=== PATIENT | female | born 1960 | race Caucasian/White ===

== ENCOUNTER → 2018-05-24 08:18 | Outpatient (CLI) | payer OTHER, SELFPAY ==
--- NOTE | 2018-05-24 08:23 | BI_ITS ---
MAMMOGRAPHY - BILATERAL SCREENING REASON FOR EXAM: Female, 57 years old. Routine annual screening examination. PERTINENT HISTORY: Aunt with breast cancer. TECHNIQUE: Digital bilateral breast eddie (3D mammographic acquisition) in the CC and MLO projections. 2-D mediolateral oblique (MLO) and craniocaudad (CC) views of both breasts were obtained. CAD: Full Field Digital Mammography with Computer Added Detection was performed. COMPARISON: Comparison is made with prior study dated April 07, 2017 and March 04, 2016. FINDINGS: Breast Composition: There are scattered areas of fibroglandular density. There are no dominant masses or suspicious calcifications. No other significant abnormalities are identified. There has been no significant change since the prior study. BI/SCREENING MAMM (CAD), BILAT IMPRESSION: Stable bilateral screening mammogram. Yearly follow-up mammogram recommended. (A) ASSESSMENT CATEGORY: BIRADS Category 1: Negative. A letter regarding these results will be sent to the patient by the facility within 30 days. Approximately 10% of breast cancers are not detected by mammography. A normal mammogram should not delay biopsy of a clinically suspicious abnormality. [id number] Electronically Signed: Maxi Del Toro MD at 11:32 EST , Service support ,
== END ==
PROVIDERS: Family Provider Family Medicine; PCP Family Medicine; Visit Provider Family Medicine
DX: Z12.31 Encounter for screening mammogram for malignant neoplasm of breast (principal)
CPT/HCPCS: 77063; 77067

== ENCOUNTER → 2019-05-30 06:59 | Outpatient (CLI) | payer OTHER, SELFPAY ==
--- NOTE | 2019-05-30 07:02 | BI_ITS ---
MAMMOGRAPHY - BILATERAL SCREENING REASON FOR EXAM: Female, 58 years old. Routine annual screening examination. PERTINENT HISTORY: Aunt with breast cancer. TECHNIQUE: Digital bilateral breast nya (3D mammographic acquisition) in the CC and MLO projections. 2-D mediolateral oblique (MLO) and craniocaudad (CC) views of both breasts were obtained. CAD: Full Field Digital Mammography with Computer Added Detection was performed. COMPARISON: Comparison is made with prior examination dated May 24, 2018 and April 07, 2017. FINDINGS: Breast Composition: There are scattered areas of fibroglandular density. There are no dominant masses or suspicious calcifications. Stable small benign-appearing bilateral axillary lymph nodes. No other significant abnormalities are identified. There has been no significant change since the prior study. BI/SCREEN MAMM (CAD) W/NYA BILAT IMPRESSION: Stable bilateral screening mammogram. Yearly follow-up mammogram recommended. (A) ASSESSMENT CATEGORY: BIRADS Category 2: Benign. A letter regarding these results will be sent to the patient by the facility within 30 days. Approximately 10% of breast cancers are not detected by mammography. A normal mammogram should not delay biopsy of a clinically suspicious abnormality. [id number] Electronically Signed: Maxi Del Toro, at 8:50 EST , Service support ,
== END ==
PROVIDERS: Family Provider Family Medicine; PCP Family Medicine; Referring Provider Family Medicine; Visit Provider Family Medicine
DX: Z12.31 Encounter for screening mammogram for malignant neoplasm of breast (principal)
CPT/HCPCS: 77063; 77067

== ENCOUNTER → 2019-10-06 11:26 | Outpatient (CLI) | payer OTHER, SELFPAY ==
[2016-07-06 05:12] VITALS: BMI 44.7
[2019-10-06 15:46] LABS: Thyroid Stim Hormone (TSH) 2.12 uIU/mL (0.358-3.74); Uric Acid 9.2 mg/dL (2.6-6.0)
[2019-10-06 16:52] LABS: Hemoglobin A1c 5.2 % (3.8-5.6)
== END ==
PROVIDERS: PCP Family Medicine; Referring Provider Family Medicine; Visit Provider Family Medicine
DX: R73.02 Impaired glucose tolerance (oral) (principal); E03.9 Hypothyroidism, unspecified; M10.9 Gout, unspecified
CPT/HCPCS: 36415; 83036; 84443; 84550

== ENCOUNTER → 2020-05-01 16:52 | Outpatient (CLI) | payer OTHER, SELFPAY ==
[2016-07-06 05:12] VITALS: BMI 44.7
[2020-05-01 18:19] LABS: Uric Acid 10.2 mg/dL (2.6-6.0)
== END ==
PROVIDERS: PCP Family Medicine; Referring Provider Family Medicine; Visit Provider Family Medicine
DX: M10.9 Gout, unspecified (principal)
CPT/HCPCS: 36415; 84550

== ENCOUNTER → 2020-06-04 11:57 | Outpatient (CLI) | payer OTHER, SELFPAY ==
--- NOTE | 2020-06-04 11:59 | BI_ITS ---
MAMMOGRAPHY - BILATERAL SCREENING REASON FOR EXAM: Female, 59 years old. Routine annual screening examination. PERTINENT HISTORY: Aunt with breast cancer. TECHNIQUE: Digital bilateral breast nya (3D mammographic acquisition) in the CC and MLO projections. 2-D mediolateral oblique (MLO) and craniocaudad (CC) views of both breasts were obtained. CAD: Full Field Digital Mammography with Computer Added Detection was performed. COMPARISON: Comparison is made with prior study dated 05/30/2019 and 05/24/2018. FINDINGS: Breast Composition: There are scattered areas of fibroglandular density. There are no dominant masses or suspicious calcifications. Stable benign-appearing bilateral axillary lymph nodes. No other significant abnormalities are identified. There has been no significant change since the prior study. BI/SCRN MAMM (CAD)W/NYA BILAT IMPRESSION: Stable bilateral screening mammogram. Yearly follow-up mammogram recommended. (A) ASSESSMENT CATEGORY: BIRADS Category 2: Benign. A letter regarding these results will be sent to the patient by the facility within 30 days. Approximately 10% of breast cancers are not detected by mammography. A normal mammogram should not delay biopsy of a clinically suspicious abnormality. [id number] Electronically Signed: Maxi Del Toro MD at 12:46 EST , Service support ,
== END ==
PROVIDERS: PCP Family Medicine; Referring Provider Family Medicine; Visit Provider Family Medicine
DX: Z12.31 Encounter for screening mammogram for malignant neoplasm of breast (principal)
CPT/HCPCS: 77063; 77067

== ENCOUNTER → 2020-07-12 15:32 | Outpatient (CLI) | payer OTHER, SELFPAY ==
[2016-07-06 05:12] VITALS: BMI 44.7
[2020-07-12 20:29] LABS: Uric Acid 5.6 mg/dL (2.6-6.0)
== END ==
PROVIDERS: PCP Family Medicine; Referring Provider Family Medicine; Visit Provider Family Medicine
DX: M10.9 Gout, unspecified (principal)
CPT/HCPCS: 36415; 84550

== ENCOUNTER → 2020-09-24 10:50 | Outpatient (CLI) | payer OTHER, SELFPAY ==
[2016-07-06 05:12] VITALS: BMI 44.7
== END ==
PROVIDERS: PCP Family Medicine; Referring Provider Family Medicine; Visit Provider Family Medicine
DX: E03.9 Hypothyroidism, unspecified (principal)
CPT/HCPCS: 36415; 84443

== ENCOUNTER 2021-04-10 12:05 | Inpatient (IN) | payer OTHER, SELFPAY ==
[2021-04-10] VITALS (16 sets, daily range): BP systolic 95–109; BP diastolic 55–65; PULSE 82–101; RESP 18–27; TEMP 36.4–37.4; O2SAT 86–98; BMI 45.6; BMI 43.0
--- NOTE | 2021-04-10 12:18 | RAD_ITS ---
STUDY: X-RAY CHEST REASON FOR EXAM: Female, 60 years old. SOB and cough TECHNIQUE: AP COMPARISON: None. FINDINGS: Multifocal infiltrates with features commonly reported with COVID pneumonia. There is no demonstrated pleural abnormality. Normal size heart. Normal mediastinum and brenda. Normal visualized pulmonary arteries. Normal visualized aortic arch and descending thoracic aorta. Normal visualized thoracic spine. Normal visualized ribs, clavicles, and shoulders. There is no demonstrated abnormality of the visualized soft tissue structures of the upper abdomen. RAD/Chest 1 View (Portable) IMPRESSION: Multifocal infiltrates with features commonly reported with COVID pneumonia. Electronically Signed: Bay Parra MD (Brooks) at 12:46 EST , Service support ,
[2021-04-10 12:27] LABS: Absolute Lymphocyte Count 1.07 X10^3/uL (0.83-4.51); Absolute Neutrophil Count 6.6 X10^3/uL (2.0-7.7); Basophil# 0.01 X10^3/uL; Basophil% 0.1 % (0-1); Eosinophil# 0.01 X10^3/uL; Eosinophils% 0.1 % (0-5); Hematocrit 38.3 % (37-47); Lymphocyte # 1.07 X10^3/ul (0.83-4.51); Lymphocyte % 12.7 % (19-41); Mean Corp Hgb Conc 33.9 g/dL (32-36); Mean Corpuscular Hgb 31.9 pg (27.0-32.0); Mean Corpuscular Volume 93.9 fL (81-99); Mean Platelet Vol. 9.6 fl (6.2-12.0); Monocyte% 8.3 % (0-10); NRBC Flagged by Analyzer 0 % (0-5); Neutrophil # 6.58 X10^3/uL (2.7-7.7); Neutrophil % 78.2 % (47-70); Platelet Count 178 K/mm3 (150-450); RBC Distribution Width CV 13.4 % (11.6-14.6); RBC Distribution Width SD 46.1 fl (35.1-43.9); Red Blood Count 4.08 M/mm3 (4.2-5.4); White Blood Count 8.4 K/mm3 (4.4-11.0)
[2021-04-10 12:45] LABS: Anion Gap 9 (5-15); BUN 49 mg/dL (7-18); Calcium,Total 9.3 mg/dL (8.5-10.1); Chloride 100 mmol/L (98-107); Creatinine, Serum 3.77 mg/dL (0.55-1.02); EST Glomerular Filtration Rate 13 mL/min (>60); Est Glom Filt Rate - Afr Amer 16 mL/min (>60); Estimated Creatinine Clearance 16.21 ml/min; Glucose 130 mg/dL (74-106); Potassium 3.7 mmol/L (3.5-5.1); Sodium Level 135 mmol/L (136-145)
--- NOTE | 2021-04-10 12:58 | EKG12_ITS ---
Test Reason : SOB Blood Pressure : / mmHG Vent. Rate : 100 BPM Atrial Rate : 100 BPM P-R Int : 144 ms QRS Dur : 080 ms QT Int : 326 ms P-R-T Axes : 048 007 021 degrees QTc Int : 420 ms Normal sinus rhythm Normal ECG Confirmed by THERESA STONE, TANNA ([id number]), technical writer and editor JOHN SAENZ ([id number]) on 04/16/2021 10:17:42 AM Referred By: SHIRA Confirmed By:TANNA CARDENAS MD
[2021-04-10 13:19] LABS: Troponin-I HS 14 pg/mL (3.0-54.0)
--- NOTE | 2021-04-10 13:59 | ED.VIS.DYS ---
HPI History of Present Illness Chief Complaint: Shortness of Breath Narrative Narrative: 60-year-old female presenting with cough, fevers, shortness of breath, decreased p.o. intake and malaise. Patient states she started to become ill on 03 April. Patient states that since that time she has not been eating and drinking much but she is not vomiting. She does admit to drinking some water and some Mountain Dew. She states that on she tried to eat a hotdog but she has not eaten much. She denies abdominal pain. She states she has been making urine and stool. She denies dysuria or hematuria. Patient states that since she has been ill, she has been sleeping most of the night and then laying around on her recliner most of the day. She estimates this to be about 20 hours in total a day that she is lying down. [facility] Medical History Hypertension Hypothyroid Home Medications aliskiren-hydrochlorothiazide [Tekturna Hct 300-25 MG Tablet] 1 tab PO DAILY 07/06/16 [History Last Taken Unknown] levothyroxine 50 mcg PO DAILY 07/06/16 [History Last Taken Unknown] nebivolol [Bystolic] 5 mg PO DAILY 07/06/16 [History Last Taken Unknown] allopurinol 04/10/21 [History Last Taken Unknown] Allergy/AdvReac Type Severity Reaction Status Date / Time No Known Allergies Allergy Verified 07/06/16 05:14 Social History Smoking Status: Never smoker ROS [facility] ED Constitutional Constitutional ED: Reports chills and fever(s) Eyes Eyes: Denies blurry vision or change in vision ENT ENT ED: Denies rhinorrhea or sore throat Cardiovascular Cardiovascular: Denies chest pain or palpitations Respiratory/Chest Respiratory/Chest: Reports cough, dyspnea and dyspnea on exertion Gastrointestinal Gastrointestinal: Denies abdominal pain, nausea or vomiting Genitourinary Genitourinary ED: Denies dysuria or hematuria Musculoskeletal Musculoskeletal: Reports myalgias; Denies arthralgias or neck pain Integumentary Denies abscess or rash Neurologic Neurologic: Denies headache(s) or paresthesias Psychiatric Psychiatric: Denies anxiety or depression EXAM Physical Exam Const Vital Signs: 04/10/21 12:05 04/10/21 12:08 04/10/21 12:15 Temperature 97.5 F L Temperature Source Temporal Pulse Rate 101 H Respiratory Rate 22 H Respiratory Effort Respiratory Depth Respiratory Pattern Blood Pressure 97/55 L Blood Pressure Mean 69 Pulse Ox 86 90 Oxygen Delivery Method Room Air Nasal Cannula Nasal Cannula Oxygen Flow Rate (L/min) 2 2 04/10/21 12:16 04/10/21 13:01 04/10/21 13:06 Temperature 99.3 F H Temperature Source Oral Pulse Rate 97 Respiratory Rate 26 H Respiratory Effort Normal Respiratory Depth Normal Respiratory Pattern Tachypnea Blood Pressure 95/58 L Blood Pressure Mean 70 Pulse Ox 93 96 Oxygen Delivery Method Nasal Cannula Nasal Cannula Nasal Cannula Oxygen Flow Rate (L/min) 2 3 3 04/10/21 14:11 04/10/21 14:13 Temperature 98.6 F 98.6 F Temperature Source Temporal Temporal Pulse Rate 95 94 Respiratory Rate 26 H 26 H Respiratory Effort Respiratory Depth Respiratory Pattern Blood Pressure 100/62 100/62 Blood Pressure Mean 74 74 Pulse Ox 98 98 Oxygen Delivery Method Nasal Cannula Nasal Cannula Oxygen Flow Rate (L/min) 3 3 Positive obese General Appearance ED: NAD; Negative for pallor Nutritional Appearance: obese HEENT Reports dry mucous membranes atraumatic Mouth ED: Yes dry mucous membranes Mouth: dry mucous membranes Eyes PERRL and EOMs intact bilaterally Resp normal respiratory effort Auscultation: rales bilateral base Cardio regular rate and regular rhythm Extremity normal to inspection Neuro oriented x3 and CN's II-XII intact bilaterally Sensorium / Orientation: alert Motor Exam: strength 5/5 throughout Psych mental status grossly normal Thought Process: normal thought process Skin General Skin Exam: Negative for jaundice or pallor Rashes: no rashes MDM MDM MDM Narrative Medical decision making narrative: Patient presenting with viral symptoms. She states he has not been eating and drinking well. She states for the most part her symptoms have started to improve although she is significantly short of breath with exertion. Patient found to be hypoxic on arrival and was 86% on room air. Patient placed on 3 L nasal cannula and is maintaining her sats at 96%. EKG performed on arrival shows a sinus rhythm with a ventricular rate of 100 bpm without sign of ischemic change on my interpretation. Chest x-ray on my interpretation shows multiple bilateral infiltrates and the radiologist does agree. Patient CBC shows she does not have leukocytosis. Hemoglobin and hematocrit are stable. Electrolytes are normal however the patient's creatinine is elevated at 3.77. The only creatinine that I have is from 2017 to compare this to and this was 0.8. Patient states she had outpatient blood work about 6 months ago and was not told of any abnormalities. Patient was given 500 cc of IV fluids. High-sensitivity troponin is negative at 14. Given the patient's decreased renal function and hypoxia I think she would benefit from inpatient treatment. Impression: 1. COVID-19 pneumonitis 2. Hypoxic respiratory failure 3. Acute renal failure Lab Data Labs: Laboratory Results - last 24 hr 04/10/21 04/10/21 04/10/21 12:15 12:15 12:15 WBC 8.4 RBC 4.08 L Hgb 13.0 Hct 38.3 MCV 93.9 MCH 31.9 MCHC 33.9 RDW Std Deviation 46.1 H RDW Coeff of Alverto 13.4 Plt Count 178 MPV 9.6 Immature Gran % (Auto) 0.600 Neut % (Auto) 78.2 H Lymph % (Auto) 12.7 L [place] % (Auto) 8.3 Eos % (Auto) 0.1 Baso % (Auto) 0.1 Absolute Neuts (auto) 6.6 Absolute Lymphs (auto) 1.07 Nucleated RBC % 0 Sodium 135 L Potassium 3.7 Chloride 100 Carbon Dioxide 26.0 Anion Gap 9 BUN 49 H Creatinine 3.77 H Estim Creat Clear Calc 16.21 Est GFR (MDRD) Af Amer 16 L Est GFR (MDRD) Non-Af 13 L BUN/Creatinine Ratio 13.0 Glucose 130 H Calcium 9.3 Troponin I High Sens 14 Radiography Diagnostic Testing: Clinical Impression(s) from Imaging Studies Chest X-Ray 04/10/21 12:18 IMPRESSION: Multifocal infiltrates with features commonly reported with COVID pneumonia. Electronically Signed: Bay Parra MD ([place]) at 12:46 EST , Service support , Discharge Plan Triage Chief Complaint: Shortness of Breath ED Provider: Sung Talbert Dx/Rx/DC Orders Prescriptions: No Action levothyroxine 50 MCG tablet 50 mcg PO DAILY RF: 0 nebivolol [Bystolic] 5 MG tablet 5 mg PO DAILY RF: 0 Tekturna HCT 1 TAB tablet 1 tab PO DAILY RF: 0 allopurinol 100 mg tablet RF: 0 Primary Care Provider: Eliecer George
--- NOTE | 2021-04-10 14:12 | PCM.HP.STD ---
HPI - General General Date of Admission: 04/10/21 Date of Service: 04/10/21 Chief Complaint: COVID type symptoms, worsening. HPI Narrative The patient is a 60 y/o F w/ PMHx: HTN, Hypothyroidism, Morbid Obesity who presents to the [facility] ED on 04/10/21 with history of onset of Covid type symptoms on 04/03/2021 with unvaccinated COVID status with specifically chills, body aches, sore throat as well as dyspnea, cough and mild loose stools, not improving with worsening dyspnea prompting eventual ED evaluation. Her is also present and occasionally coughing and notes that he was ill prior to her but has been improving. Work-up in the ED included T 97.5, heart rate 101, BP 97/55, respiratory rate 22 up to 26, 86% on room air initially improved to 93% on 2 L nasal cannula, CBC with WC 8.4, hemoglobin 13, platelet 178 without marked shift, D-dimer 0.79, PTT 31.8, CMP with sodium 135, BUN/Cr 49/3.77, glucose 130, total bilirubin 1.0, direct bilirubin 0.42, AST/ALT 61/45, troponin , UA with possible evidence of urine tract infection however patient urinalysis is a poor sample with elevated squamous epithelial cells with repeat UA requested and pending, chest x-ray with bilateral Covid pneumonia, rapid Covid antigen positive. In the ED patient ministered Decadron therapy. [facility] Medical History (Updated 04/10/21 @ 19:[address] Destiny Benavidez MD) Hypertension Hypothyroid Morbid obesity Post-menopausal Home Medications aliskiren-hydrochlorothiazide [Tekturna Hct 300-25 MG Tablet] 1 tab PO DAILY 07/06/16 [History Last Taken 04/09/21] nebivolol [Bystolic] 5 mg PO DAILY 07/06/16 [History Last Taken 04/09/21] allopurinol 200 mg PO DAILY 04/10/21 [History Last Taken 04/09/21] levothyroxine [Synthroid] 75 mcg PO DAILY 04/10/21 [History Last Taken 04/09/21] Allergy/AdvReac Type Severity Reaction Status Date / Time No Known Allergies Allergy Verified 07/06/16 05:14 Family History (Updated 04/10/21 @ 19:[address] Destiny Benavidez MD) Mother Colon cancer Colon CA, diagnosed age 76. Father Heart disease Myocardial infarction age 54 secondary to MS. Surgical History (Updated 04/10/21 @ 19:[address] Destiny Benavidez MD) No history of previous surgery Social History (Updated 04/10/21 @ 19:[address] Destiny Benavidez MD) household members: spouse Smoking Status: Never smoker alcohol intake: never substance use type: does not use ROS ROS Narrative Admission Review of Systems: CONSTITUTIONAL: No weight loss, fever, + chills, weakness or fatigue. HEENT: + sore throat. Eyes: No visual loss, blurred vision, double vision or yellow sclerae. Ears, Nose, Throat: No hearing loss, sneezing. SKIN: No rash or itching, lesions, wounds. CARDIOVASCULAR: No chest pain, chest pressure or chest discomfort, palpitations, edema, orthopnea, syncopal events. RESPIRATORY: + shortness of breath, cough, No marked sputum, wheezing, hemoptysis. GASTROINTESTINAL: + diarrhea, anorexia, No nausea, vomiting, abdominal pain, melena, BRBPR. GENITOURINARY: No dysuria, frequency, urgency or retention. NEUROLOGICAL: No dizziness, headache, syncope, paralysis, ataxia, numbness or tingling in the extremities, focal weakness, change in bowel or bladder control, seizure. MUSCULOSKELETAL: + muscle, back pain, joint pain or stiffness. HEMATOLOGIC: No anemia, bleeding or bruising. LYMPHATICS: No enlarged nodes. No history of splenectomy. PSYCHIATRIC: No history of depression or anxiety. ENDOCRINOLOGIC: No reports of sweating, cold or heat intolerance. No polyuria or polydipsia. ALLERGIES: No history of asthma, hives, eczema or rhinitis. Vital Signs Vital Signs Vital Signs: 04/10/21 12:05 04/10/21 12:08 04/10/21 12:15 Temperature 97.5 F L Temperature Source Temporal Pulse Rate 101 H Respiratory Rate 22 H Respiratory Effort Respiratory Depth Respiratory Pattern Blood Pressure 97/55 L Blood Pressure Mean 69 Pulse Ox 86 90 Oxygen Delivery Method Room Air Nasal Cannula Nasal Cannula Oxygen Flow Rate (L/min) 2 2 04/10/21 12:16 04/10/21 13:01 04/10/21 13:06 Temperature 99.3 F H Temperature Source Oral Pulse Rate 97 Respiratory Rate 26 H Respiratory Effort Normal Respiratory Depth Normal Respiratory Pattern Tachypnea Blood Pressure 95/58 L Blood Pressure Mean 70 Pulse Ox 93 96 Oxygen Delivery Method Nasal Cannula Nasal Cannula Nasal Cannula Oxygen Flow Rate (L/min) 2 3 3 Weight Weight: 300 lb Body Mass Index (BMI) 45.6 Physical Exam Narrative Physical Examination: General: Awake, alert, oriented x 3 and cooperative, seated upright in the ED bed, fatigued and ill-appearing, mildly increased respiratory rate. Skin: Normal color, normal turgor, no icterus, no cyanosis. HEENT: AT/NC, EOMI, PERRLA, moderately dry MM, no carotid bruits or JVD noted. Lungs: Diffusely diminished, greater bases, increased respiratory rate, no rales, ronchi or wheezing. Heart: Mildly tachycardic with regular rhythm; no gallop, rub audible. Abdomen: Soft, morbidly obese, no obvious TTP, unable to discern distention given habitus, distant hyperactive bowel sounds, unable to discern HSM secondary to habitus. Extremities: No cyanosis, clubbing, or edema. Neurological: Patient awake, alert, oriented as noted, cognitive function intact; pupils equally reactive to light and accommodation, cranial nerves II-XII grossly normal, moving all 4 extremities, no focal deficits, strength moderately to severely globally decreased secondary to acute presentation. Psychiatric: Affect appears fatigued, ill-appearing, no acute evidence of depressive or anxiety feelings. Results Lab / Micro Data Result Diagrams: 04/10/21 12:15 04/10/21 12:15 Labs: Laboratory Results - last 24 hr 04/10/21 12:15: WBC 8.4, RBC 4.08 L, Hgb 13.0, Hct 38.3, MCV 93.9, MCH 31.9, MCHC 33.9, RDW Std Deviation 46.1 H, RDW Coeff of Alverto 13.4, Plt Count 178, MPV 9.6, Immature Gran % (Auto) 0.600, Neut % (Auto) 78.2 H, Lymph % (Auto) 12.7 L, [place] % (Auto) 8.3, Eos % (Auto) 0.1, Baso % (Auto) 0.1, Absolute Neuts (auto) 6.6, Absolute Lymphs (auto) 1.07, Nucleated RBC % 0 04/10/21 12:15: Sodium 135 L, Potassium 3.7, Chloride 100, Carbon Dioxide 26.0, Anion Gap 9, BUN 49 H, Creatinine 3.77 H, Estim Creat Clear Calc 16.21, Est GFR (MDRD) Af Amer 16 L, Est GFR (MDRD) Non-Af 13 L, BUN/Creatinine Ratio 13.0, Glucose 130 H, Calcium 9.3 04/10/21 12:15: Troponin I High Sens 14 Micro: Microbiology 04/10/21 12:15 Nasal Secretion SARS-CoV-2 Antigen (Rapid) - Final SARS-CoV-2 (COVID 19) Radiology Impression Chest X-Ray 04/10/21 12:18 IMPRESSION: Multifocal infiltrates with features commonly reported with COVID pneumonia. Electronically Signed: Bay Parra MD (Brooks) at 12:46 EST , Service support , Assessment & Plan Assessment/Plan (1) Pneumonia due to COVID-19 virus: (2) Hypoxia: PLAN: The patient is a 60 y/o F w/ PMHx: HTN, Hypothyroidism, Morbid Obesity who presents to the [facility] ED on 04/10/21 with history of onset of Covid type symptoms on 04/03/2021 with unvaccinated COVID status with specifically chills, body aches, sore throat as well as dyspnea, cough and mild loose stools, not improving with worsening dyspnea prompting eventual ED evaluation. #1. Acute Hypoxia secondary to Acute Bilateral Pneumonia secondary to Acute Viral Syndrome, COVID-19: Will admit to the ME telemetry, maintain on COVID precautions, will maintain on oxygen with wean as tolerated to room air, PRN albuterol, HOB, IS parameters w/ pending sputum cultures, respiratory viral panel and urine antigens, given D-dimer elevation will continue patient on heparin drip pending bilateral lower extremity ultrasounds given unable to obtain CTPA given renal function, will additionally obtain procalcitonin, CRP, CPK, Ferritin, LDH and BNP, continue supportive care including q 2 hour turning including prone given no prone bed availability and judicious hydration, closely monitor for worsening status for ARDS and multiorgan failure, will initiate and continue IV decadron x 10 doses, given presentation with significant acute kidney injury patient is not a candidate for remdesivir. #2. Acute kidney injury: Secondary to poor intake, possibly GI losses with acute presentation #1. Admission BUN/Cr 49/3.77, prior baseline creatinine noted to be 0.9. Will hydrate, hold nephrotoxic medications and repeat chemistry in AM. If no improvement would plan FeNa and renal ultrasound assessment. Initial UA requested poor sample however significant findings, requested repeat UA and urine culture from this however in the interim we will place on IV Rocephin in case patient does not fact have urinary tract infection in the setting of V[facility]. #3. Questionable Acute urinary tract infection: As noted urinalysis poor sample with elevated squamous epithelial cells, will request repeat urinalysis via catheterization and send urine culture from the sample, in the interim we will place to be cautious on IV Rocephin therapy, de-escalate off if repeat urinalysis is unremarkable. #4. Hypertension: Given acute kidney injury will hold patient Tekturna, continue patient Bystolic, hold as needed given low blood pressure in the ED. #5. Hypothyroidism: Continue home synthroid regimen. #6. Morbid Obesity: Weight loss and lifestyle changes encouraged, nutrition consulted. #7. DVT prophylaxis: SCDs, heparin drip pending duplex ultrasound lower extremities. #8. CODE status: Patient HCPOA and LW not in place. Given COVID PNA with hypoxia in unvaccinated status, discussed CODE status at length including difference between FULL code, DNR-CCA and DNR-CC status. Following discussions about the differences in these status, requested Full Code status, amenable to airvo, BIPAP, remdesivir and barcitinib if necessary (if renal function improves). Advanced Care Planning Face to Face Time: 16 minutes. Charges/Coding Visit Charges Inpatient E&M: 46768 Init Hosp L3 Procedures Hospitalists Procedures: 65002 Advncd Care Plan 30 Min
--- NOTE | 2021-04-10 14:28 | NURSING ---
MED SURG DANII COVID 19, ACUTE RENAL FAILURE, HYPOXIC RESP FAILURE
[2021-04-10 14:40] LABS: CPK Total, Creatine Kinase 243 U/L (26-192)
[2021-04-10] MEDS: dexAMETHasone 10 MG/ML Vial 6 MG IV (15:25)
[2021-04-10 15:32] LABS: D-Dimer Quantitative (DVT/PE) 0.79 FEU/ug/m (0.27-0.49)
[2021-04-10 15:35] LABS: BNP,B-Type NATRIURETIC PEPTIDE 9.1 pg/mL (0-100)
[2021-04-10 15:42] LABS: Procalcitonin 0.29 ng/mL (0.00-0.09)
[2021-04-10 15:44] LABS: Mucous, Urine 0 SEEN /hpf (<or=2+)
[2021-04-10 15:53] LABS: Color, Urine Yellow (Yellow); Glucose, Dipstick Normal (Normal); Ketone-Dipstick 5 mg/dl (Negative); Leukocyte Esterase-Dipstick 500 /ul (Negative); Nitrite-Dipstick Positive (Negative); Occult Blood-Urine 150 /ul (Negative); Protein-Dipstick 100 mg/dl (Negative); Specific Gravity, Urine 1.025 (1.002-1.030); Urine Clarity Cloudy (Clear); Urine Urobilinogen 1 mg/dl (Normal)
[2021-04-10 15:56] LABS: Bacteria 4+ /hpf (None Seen); Red Blood Cells-Urine 25-50 SEEN /hpf (0-5); Squamous Epithelial Cells - UA 10-25 SEEN /hpf (5-10); Urine Bilirubin Dipstick 1 mg/dL (Negative); White Blood Cells >100 SEEN /hpf (0-5)
[2021-04-10] MEDS: 0.9% Normal Saline 1,000 ML 125 ML IV (16:00)
[2021-04-10 16:04] LABS: AST(SGOT) 61 U/L (15-37); Alanine Aminotransfer ALT/SGPT 45 U/L (13-56); Albumin, Serum 3.4 g/dL (3.2-5.0); Alkaline Phosphatase 102 U/L (45-117); Bilirubin, Direct 0.42 mg/dL (0.00-0.30); Ferritin 727 ng/mL (8-252); Globulin 4.7 g/dL (2.2-4.2); LDH 273 U/L (84-246); Protein, Total 8.1 g/dL (6.4-8.2)
--- NOTE | 2021-04-10 16:41 | VDLE_ITS ---
Reason For Study: Elevated D-dimer RIGHT LEFT GSV is normal. GSV is normal. CFV, FV and PopV are compressible. CFV, FV and PopV are compressible. T/P Trunk is compressible. T/P Trunk is compressible. PTV is compressible. PTV is compressible. RT PerV is compressible. LT PerV is compressible. Procedure This is a venous duplex using B-mode, color flow and spectral Doppler. Exam performed portable in patient room. A preliminary report was called and/or faxed to [facility]. VL/Venous Duplex US - Yousif Extrem Interpretation Summary No evidence for acute deep venous thrombosis bilateral lower extremities with p atent and compressible bilateral great saphenous veins. Abbreviated COVID-19 protocol uti lized Ordering Physician: Destiny Benavidez Referring Physician: Eliecer George Performed By: Mary Burr RVT
[2021-04-10 18:21] LABS: Partial Thromboplast Time 31.8 Seconds (24.1-36.2)
[2021-04-10] MEDS: Heparin Injection (Vial) 5,000 UNIT/ML VIAL 9500 UNIT IV (18:54)
[2021-04-10] MEDS: Ceftriaxone 1 GM/50 ML BAG IV (21:02)
[2021-04-10] MEDS: 0.9% Saline Lock 10 ML Syringe IV (21:02)
[2021-04-11] MEDS: 0.9% Normal Saline 1,000 ML 125 ML IV (00:31)
[2021-04-11 01:08] LABS: Partial Thromboplast Time 151.5 Seconds (24.1-36.2)
--- NOTE | 2021-04-11 01:59 | NURSING ---
Pt's APTT was 151.5 @ 0100. Per Heparin Nonogram protocol I paused the IV heparin drip @ 0130 and will resume administration again @ 0330 at 13ML/HR or 1300 units per Hour.
[2021-04-11 03:00] VITALS: PULSE 72
[2021-04-11 03:45] VITALS: BP 124/71; PULSE 75; RESP 18; TEMP 36.6; O2SAT 92
--- NOTE | 2021-04-11 04:57 | NURSING ---
Resumed Pt's Iv heparin drip at 1300 units/Hr @ 0330 and ordered APTT lab draw for 929.
[2021-04-11 07:00] VITALS: PULSE 61
[2021-04-11 07:04] LABS: Absolute Lymphocyte Count 0.64 X10^3/uL (0.83-4.51); Hematocrit 33.9 % (37-47); Hemoglobin 11.2 g/dL (12.0-15.0); Lymphocyte # 0.64 X10^3/ul (0.83-4.51); Lymphocyte % 16.5 % (19-41); Mean Corpuscular Hgb 31.2 pg (27.0-32.0); Mean Corpuscular Volume 94.4 fL (81-99); Mean Platelet Vol. 9.8 fl (6.2-12.0); Monocyte# 0.19 X10^3/uL; Monocyte% 4.9 % (0-10); NRBC Flagged by Analyzer 0 % (0-5); Neutrophil # 3.03 X10^3/uL (2.7-7.7); Neutrophil % 78.1 % (47-70); Platelet Count 160 K/mm3 (150-450); RBC Distribution Width CV 13.1 % (11.6-14.6); RBC Distribution Width SD 45.1 fl (35.1-43.9); Red Blood Count 3.59 M/mm3 (4.2-5.4); White Blood Count 3.9 K/mm3 (4.4-11.0)
[2021-04-11 07:57] LABS: ALB/GLOB Ratio 0.6 RATIO (0.9-2.4); AST(SGOT) 42 U/L (15-37); Alanine Aminotransfer ALT/SGPT 38 U/L (13-56); Albumin, Serum 2.6 g/dL (3.2-5.0); Alkaline Phosphatase 81 U/L (45-117); Anion Gap 10 (5-15); BUN 45 mg/dL (7-18); BUN/Creat Ratio 20.6 RATIO (10-20); Calcium,Total 8.3 mg/dL (8.5-10.1); Chloride 105 mmol/L (98-107); Creatinine, Serum 2.18 mg/dL (0.55-1.02); EST Glomerular Filtration Rate 25 mL/min (>60); Est Glom Filt Rate - Afr Amer 30 mL/min (>60); Estimated Creatinine Clearance 28.03 ml/min; Globulin 4.2 g/dL (2.2-4.2); Glucose 143 mg/dL (74-106); Potassium 3.9 mmol/L (3.5-5.1); Protein, Total 6.8 g/dL (6.4-8.2); Sodium Level 136 mmol/L (136-145)
[2021-04-11 08:00] VITALS: BP 108/66; PULSE 80; RESP 18; TEMP 36.9; O2SAT 88; O2SAT 90
--- NOTE | 2021-04-11 09:47 | PCM.PN.HOSP ---
Subjective Subjective Seen and examined. Patient admitted with Covid symptoms since 04/03. Patient also complained of chest pain midsternal. Twelve-lead EKG and troponin was done and negative. Objective Data Objective Data Vital Signs: Vital Signs Temp Pulse Resp BP Pulse Ox 98.5 F 80 18 108/66 90 04/11/21 08:00 04/11/21 08:00 04/11/21 08:00 04/11/21 08:00 04/11/21 08:00 Oxygen Flow Rate (L/min) 4 Oxygen Delivery Method Nasal Cannula Weight: 283 lb 1.176 oz Body Mass Index (BMI) 43.0 Intake & Output: Intake and Output for Last 24 Hours 04/09/21 04/10/21 04/11/21 23:59 23:59 23:59 Intake Total 550 / 1550 1805.07 / 1805.07 Output Total 100 / 100 Balance 450 / 1450 1805.07 / 1805.07 Lab / Micro Data Result Diagrams: 04/11/21 06:10 04/11/21 06:10 Labs: Laboratory Results - last 24 hr 04/10/21 12:15: WBC 8.4, RBC 4.08 L, Hgb 13.0, Hct 38.3, MCV 93.9, MCH 31.9, MCHC 33.9, RDW Std Deviation 46.1 H, RDW Coeff of Alverto 13.4, Plt Count 178, MPV 9.6, Immature Gran % (Auto) 0.600, Neut % (Auto) 78.2 H, Lymph % (Auto) 12.7 L, [place] % (Auto) 8.3, Eos % (Auto) 0.1, Baso % (Auto) 0.1, Absolute Neuts (auto) 6.6, Absolute Lymphs (auto) 1.07, Nucleated RBC % 0 04/10/21 12:15: Sodium 135 L, Potassium 3.7, Chloride 100, Carbon Dioxide 26.0, Anion Gap 9, BUN 49 H, Creatinine 3.77 H, Estim Creat Clear Calc 16.21, Est GFR (MDRD) Af Amer 16 L, Est GFR (MDRD) Non-Af 13 L, BUN/Creatinine Ratio 13.0, Glucose 130 H, Calcium 9.3 04/10/21 12:15: Troponin I High Sens 14 04/10/21 12:15: Total Creatine Kinase 243 H 04/10/21 12:15: D-Dimer Quant (PE/DVT) 0.79 H* 04/10/21 12:15: Ferritin 727 H, Total Bilirubin 1.00, Direct Bilirubin 0.42 H, AST 61 H, ALT 45, Alkaline Phosphatase 102, Lactate Dehydrogenase 273 H, C-React Prot Ext Range 129.00 H, Total Protein 8.1, Albumin 3.4, Globulin 4.7 H 04/10/21 12:15: B-Natriuretic Peptide 9.1 04/10/21 12:15: Procalcitonin 0.29 H 04/10/21 15:38: Urine Color Yellow, Urine Clarity Cloudy, Urine pH 5.0, Ur Specific Carmen 1.025, Urine Protein 100 H, Urine Glucose (UA) Normal, Urine Ketones 5 H, Urine Occult Blood 150 H, Urine Nitrite Positive H, Urine Bilirubin 1 H, Urine Urobilinogen 1 H, Ur Leukocyte Esterase 500 H, Urine RBC 25-50 SEEN, Urine WBC >100 SEEN, Ur Squamous Epith Cells 10-25 SEEN, Urine Bacteria 4+, Urine Mucus 0 SEEN 04/10/21 18:02: APTT 31.8 04/11/21 00:38: APTT 151.5 H* 04/11/21 06:10: WBC 3.9 L, RBC 3.59 L, Hgb 11.2 L, Hct 33.9 L, MCV 94.4, MCH 31.2, MCHC 33.0, RDW Std Deviation 45.1 H, RDW Coeff of Alverto 13.1, Plt Count 160, MPV 9.8, Immature Gran % (Auto) 0.500, Neut % (Auto) 78.1 H, Lymph % (Auto) 16.5 L, [place] % (Auto) 4.9, Eos % (Auto) 0.0, Baso % (Auto) 0.0, Absolute Neuts (auto) 3.0, Absolute Lymphs (auto) 0.64 L, Nucleated RBC % 0 04/11/21 06:10: Sodium 136, Potassium 3.9, Chloride 105, Carbon Dioxide 21.0, Anion Gap 10, BUN 45 H, Creatinine 2.18 H, Estim Creat Clear Calc 28.03, Est GFR (MDRD) Af Amer 30 L, Est GFR (MDRD) Non-Af 25 L, BUN/Creatinine Ratio 20.6 H, Glucose 143 H, Calcium 8.3 L, Total Bilirubin 0.50, AST 42 H, ALT 38, Alkaline Phosphatase 81, Total Protein 6.8, Albumin 2.6 L, Globulin 4.2, Albumin/Globulin Ratio 0.6 L Micro: Microbiology 04/10/21 20:00 Urine, Clean Catch Streptococcus pneumoniae Antigen (M - Final 04/10/21 20:00 Urine, Clean Catch Legionella Antigen - Final 04/10/21 12:15 Nasal Secretion SARS-CoV-2 Antigen (Rapid) - Final SARS-CoV-2 (COVID 19) Radiography Diagnostic Testing: Radiology Impression Chest X-Ray 04/10/21 12:18 IMPRESSION: Multifocal infiltrates with features commonly reported with COVID pneumonia. Electronically Signed: Bay Parra MD (Brooks) at 12:46 EST , Service support , Physical Exam Narrative General: Alert, Oriented x3, Cooperative HEENT: Hard of hearing. Atraumatic, PERRLA, EOMI, Normocephalic Oral: No Gingival or Mucosal Lesions/ Ulcerations Neck: Supple, No JVD, Negative Carotid Bruits Lungs: Air entry diminished in bilateral lung bases. Mild fine bilateral expiratory rhonchi. Cardiovascular: Regular rate, Regular Rhythm, Normal S1, Normal S2, No murmurs Abdomen: Bowel Sounds Present, Soft, Non Tender, Non-Distended : No renal angle tenderness. No suprapubic tenderness. Extremities: No edema, Capillary Refill Less than 3 Seconds Skin: No rashes, No breakdown Musculoskeletal: No Tenderness to Palpation of Joints or Extremities Neurological: Cranial nerves II-XII grossly intact, DTR 2+/4 and Symmetrical, Neuro grossly intact Psych/Mental Status: Normal Affect, Appropriate. Assessment & Plan Assessment/Plan (1) Pneumonia due to COVID-19 virus: (2) Hypoxia: PLAN: The patient is a 60 y/o F was admitted with fever, body chills, dyspnea cough and symptomatology of COVID-19 since 04/03. #1. Acute bilateral COVID-19 pneumonia with hypoxia: Patient on heparin drip for high D-dimer. Could not do CTPA but venous duplex negative for acute DVT bilateral lower extremities. Inflammatory markers are elevated. On dexamethasone. Not cleared for remdesivir because of acute kidney injury. #2. Acute kidney injury, probably prerenal from GI loss: Improvement in BUN/creatinine with IV fluid rehydration. #3. Questionable Acute urinary tract infection: UA positive of nitrite and LE. Pyuria present. On IV Rocephin. Follow urine culture #4. Hypertension: Given acute kidney injury will hold patient Tekturna, continue patient Bystolic, hold as needed given low blood pressure in the ED. #5. Hypothyroidism: Continue home synthroid regimen. #6. Morbid Obesity: Weight loss and lifestyle changes encouraged, nutrition consulted. #7. DVT prophylaxis: SCDs, heparin drip pending duplex ultrasound lower extremities. #8. CODE status: Full code. Charges/Coding Visit Charges Inpatient E&M: 02054 Subs Hosp L2
[2021-04-11 09:54] LABS: Partial Thromboplast Time 70.8 Seconds (24.1-36.2)
--- NOTE | 2021-04-11 10:28 | NURSING ---
PTT 70.8, NO CHANGE TO HEPARIN GTT, REDRAW PTT AT 1530 ORDERED
--- NOTE | 2021-04-11 10:30 | NURSING ---
VSA OVERRIDE OBTAINED. SPO2 HAS BEEN 91-95% ALL AM, OCCASIONALLY DROPPED BELOW 90% WITH ACTIVITY. PT ON 4L. TELE DC'D WELL, NSR, PT UNABLE TO LIE PRONE W/THE EXCESS EQUIPMENT
[2021-04-11] MEDS: Levothyroxine 75 MCG Tablet PO (11:16)
[2021-04-11] MEDS: Allopurinol 100 MG Tablet 200 MG PO (11:16)
[2021-04-11] MEDS: 0.9% Saline Lock 10 ML Syringe IV (11:16)
[2021-04-11] MEDS: dexAMETHasone 10 MG/ML Vial 6 MG IV (11:20)
[2021-04-11] MEDS: Ceftriaxone 1 GM/50 ML BAG IV (11:20)
--- NOTE | 2021-04-11 12:10 | CASEMGMT ---
LAUREL PICKENS Assessment: Face to Face with pt for initial transition planning/care coordination assessment. LAUREL PICKENS introduced self and role at [facility], pt voices understanding and consents to assessment. Pt is A/O x4 and answers all questions appropriately at this time. Pt sitting on edge of bed with O2 on in no distress. at bedside with mask and gown on. Care providers, pharmacy, and demographics verified/updated. Admitting Dx: COVID PNA, hypoxia, VIDHI PCP:Ariel Specialists:Pt denies. Preferred Pharmacy: [facility] Insurance: MMO Prescription Benefit: yes LW/HPOA: Pt denies having a LW/DPOA and denies need for info regarding AD. She states they are not sure what documents they have. LNOK: Sonu Lopezffman, Living Arrangements: Pt lives with in a single story house with 2 steps to enter. Pt reports she is I in ADL's and denies concerns at home. Transportation: Pt drives self and denies concerns with transportation. DME/HHC/SNF: Pt has a cane but does not use, denies hx of HHC or SNF stays. Pt states she was first tested for COVID at [facility]. Her has not been tested and does not have symptoms. Pt states she will not quarantine from him at home. Encouraged them to use separate bedrooms and bathrooms. Pt has family who can provide her with groceries and supplies. Provided pt with a list of local in network DME companies should she need home O2, pt denies preference. Pt states no concerns with going home at time of dc. Pt states no further concerns/needs. CM to follow. Advised pt to ask CM if any further question/concerns/needs arise, voices understanding. Pt Goal: Home Plan: Home
[2021-04-11 14:00] VITALS: BP 108/67; PULSE 78; RESP 16; TEMP 36.3; O2SAT 91; O2SAT 92
[2021-04-11] MEDS: Loperamide 2 MG Capsule PO ×2 (14:22→16:47)
[2021-04-11] MEDS: guaiFENesin 10 ML UDC (200MG/10ML) 20 ML PO (14:32)
--- NOTE | 2021-04-11 15:07 | EKG12_ITS ---
Test Reason : CP Blood Pressure : / mmHG Vent. Rate : 075 BPM Atrial Rate : 075 BPM P-R Int : 156 ms QRS Dur : 090 ms QT Int : 394 ms P-R-T Axes : 050 017 031 degrees QTc Int : 439 ms Somatic/Motion Artifact Normal sinus rhythm Nonspecific ST abnormality Abnormal ECG Confirmed by ROB STONE, ETHAN ([id number]), managing editor RUBIO ADAIR ([id number]) on 04/25/2021 8:38:51 AM Referred By: DANII Confirmed By:ETHAN RIVAS MD
[2021-04-11 15:52] LABS: Troponin-I HS 11 pg/mL (3.0-54.0)
[2021-04-11 15:56] LABS: Partial Thromboplast Time 66.1 Seconds (24.1-36.2)
--- NOTE | 2021-04-11 16:19 | NURSING ---
ptt 66.1, no change to heparin gtt. next ptt ordered for 2129
--- NOTE | 2021-04-11 16:48 | NURSING ---
ekg and troponin results sent to dr blair
[2021-04-11 20:48] VITALS: BP 105/64; PULSE 72; RESP 18; TEMP 36.7; O2SAT 93
[2021-04-11 22:11] LABS: Partial Thromboplast Time 50.8 Seconds (24.1-36.2)
[2021-04-12] VITALS (10 sets, daily range): BP systolic 89–125; BP diastolic 51–77; PULSE 70–89; RESP 18–20; TEMP 36.2–36.6; O2SAT 3–93
[2021-04-12] MEDS: Heparin Injection (Vial) 5,000 UNIT/ML VIAL IV (00:26)
[2021-04-12 06:33] LABS: Absolute Lymphocyte Count 0.85 X10^3/uL (0.83-4.51); Absolute Neutrophil Count 5.7 X10^3/uL (2.0-7.7); Basophil# 0.01 X10^3/uL; Basophil% 0.1 % (0-1); Hematocrit 34.2 % (37-47); Hemoglobin 11.4 g/dL (12.0-15.0); Lymphocyte # 0.85 X10^3/ul (0.83-4.51); Mean Corp Hgb Conc 33.3 g/dL (32-36); Mean Corpuscular Hgb 31.2 pg (27.0-32.0); Mean Corpuscular Volume 93.7 fL (81-99); Mean Platelet Vol. 9.5 fl (6.2-12.0); Monocyte# 0.49 X10^3/uL; Monocyte% 6.9 % (0-10); NRBC Flagged by Analyzer 0 % (0-5); Neutrophil # 5.66 X10^3/uL (2.7-7.7); Platelet Count 206 K/mm3 (150-450); RBC Distribution Width CV 12.9 % (11.6-14.6); RBC Distribution Width SD 44.4 fl (35.1-43.9); Red Blood Count 3.65 M/mm3 (4.2-5.4); White Blood Count 7.1 K/mm3 (4.4-11.0)
[2021-04-12 06:45] LABS: Partial Thromboplast Time 62.9 Seconds (24.1-36.2)
[2021-04-12 07:08] LABS: ALB/GLOB Ratio 0.7 RATIO (0.9-2.4); AST(SGOT) 44 U/L (15-37); Alanine Aminotransfer ALT/SGPT 41 U/L (13-56); Albumin, Serum 2.8 g/dL (3.2-5.0); Alkaline Phosphatase 78 U/L (45-117); Anion Gap 6 (5-15); BUN 36 mg/dL (7-18); BUN/Creat Ratio 27.3 RATIO (10-20); Calcium,Total 8.7 mg/dL (8.5-10.1); Chloride 107 mmol/L (98-107); Creatinine, Serum 1.32 mg/dL (0.55-1.02); EST Glomerular Filtration Rate 44 mL/min (>60); Est Glom Filt Rate - Afr Amer 53 mL/min (>60); Estimated Creatinine Clearance 46.29 ml/min; Globulin 4.1 g/dL (2.2-4.2); Glucose 142 mg/dL (74-106); Potassium 4.4 mmol/L (3.5-5.1); Protein, Total 6.9 g/dL (6.4-8.2); Sodium Level 139 mmol/L (136-145)
[2021-04-12] MEDS: Ceftriaxone 1 GM/50 ML BAG IV (09:42)
[2021-04-12] MEDS: 0.9% Saline Lock 10 ML Syringe IV (09:43)
[2021-04-12] MEDS: Levothyroxine 75 MCG Tablet PO (09:43)
[2021-04-12] MEDS: Allopurinol 100 MG Tablet 200 MG PO (09:43)
[2021-04-12] MEDS: dexAMETHasone 10 MG/ML Vial 6 MG IV (09:43)
--- NOTE | 2021-04-12 09:45 | PN.HOSP_ITS ---
Subjective Subjective Patient has mild cough, running low blood pressure. On 3 L of oxygen. In the morning she was on 7 L of oxygen. Objective Data Objective Data Vital Signs: Vital Signs Temp Pulse Resp BP Pulse Ox 97.9 F 76 20 H 113/61 93 04/12/21 09:39 04/12/21 09:39 04/12/21 09:39 04/12/21 09:39 04/12/21 09:39 Oxygen Flow Rate (L/min) 4 Oxygen Delivery Method Nasal Cannula Weight: 286 lb 9.615 oz Body Mass Index (BMI) 43.0 Intake & Output: Intake and Output for Last 24 Hours 04/10/21 04/11/21 04/12/21 23:59 23:59 23:59 Intake Total 550 / 1550 3000.00 / 3240.00 330.78 / 330.78 Output Total 100 / 100 300 / 300 Balance 450 / 1450 2700.00 / 2940.00 330.78 / 330.78 Lab / Micro Data Result Diagrams: 04/12/21 06:20 04/12/21 06:20 Labs: Laboratory Results - last 24 hr 04/11/21 09:35: APTT 70.8 H 04/11/21 15:25: APTT 66.1 H 04/11/21 15:25: Troponin I High Sens 11 04/11/21 21:52: APTT 50.8 H 04/12/21 06:20: WBC 7.1, RBC 3.65 L, Hgb 11.4 L, Hct 34.2 L, MCV 93.7, MCH 31.2, MCHC 33.3, RDW Std Deviation 44.4 H, RDW Coeff of Alverto 12.9, Plt Count 206, MPV 9.5, Immature Gran % (Auto) 1.000 H, Neut % (Auto) 80.0 H, Lymph % (Auto) 12.0 L , [place] % (Auto) 6.9, Eos % (Auto) 0.0, Baso % (Auto) 0.1, Absolute Neuts (auto) 5.7, Absolute Lymphs (auto) 0.85, Nucleated RBC % 0 04/12/21 06:20: Sodium 139, Potassium 4.4, Chloride 107, Carbon Dioxide 26.0, Anion Gap 6, BUN 36 H, Creatinine 1.32 H, Estim Creat Clear Calc 46.29, Est GFR (MDRD) Af Amer 53 L, Est GFR (MDRD) Non-Af 44 L, BUN/Creatinine Ratio 27.3 H, Glucose 142 H, Calcium 8.7, Total Bilirubin 0.50, AST 44 H, ALT 41, Alkaline Phosphatase 78, Total Protein 6.9, Albumin 2.8 L, Globulin 4.1, Albumin/Globulin Ratio 0.7 L 04/12/21 06:20: APTT 62.9 H Micro: Microbiology 04/11/21 11:30 Sputum, Expectorated/Coughed Gram Stain - Final 04/11/21 11:30 Sputum, Expectorated/Coughed Respiratory Culture - Final 04/10/21 20:00 Urine, Clean Catch Streptococcus pneumoniae Antigen (M - Final 04/10/21 20:00 Urine, Clean Catch Legionella Antigen - Final 04/10/21 12:15 Nasal Secretion SARS-CoV-2 Antigen (Rapid) - Final SARS-CoV-2 (COVID 19) Radiography Diagnostic Testing: Radiology Impression Venous Doppler Study 04/10/21 16:41 Interpretation Summary No evidence for acute deep venous thrombosis bilateral lower extremities with patent and compressible bilateral great saphenous veins. Abbreviated COVID-19 protocol utilized Ordering Physician: Destiny Benavidez Referring Physician: Eliecer George Performed By: Mary Burr RVT Physical Exam Narrative Seen and examined. No fever. Patient oxygen count was 6 L on exertion General: Alert, Oriented x3, Cooperative HEENT: Hard of hearing. Atraumatic, PERRLA, EOMI, Normocephalic Oral: No Gingival or Mucosal Lesions/ Ulcerations Neck: Supple, No JVD, Negative Carotid Bruits Lungs: Air entry diminished in bilateral lung bases. No tachypnea. Cardiovascular: Regular rate, Regular Rhythm, Normal S1, Normal S2, No murmurs Abdomen: Bowel Sounds Present, Soft, Non Tender, Non-Distended : No renal angle tenderness. No suprapubic tenderness. Extremities: No edema, Capillary Refill Less than 3 Seconds Skin: No rashes, No breakdown Musculoskeletal: No Tenderness to Palpation of Joints or Extremities Neurological: Cranial nerves II-XII grossly intact, DTR 2+/4 and Symmetrical, Neuro grossly intact Psych/Mental Status: Normal Affect, Appropriate. Assessment & Plan Assessment/Plan (1) Pneumonia due to COVID-19 virus: (2) Hypoxia: PLAN: The patient is a 60 y/o F was admitted with fever, body chills, dyspnea cough and symptomatology of COVID-19 since 04/03. #1. Acute bilateral COVID-19 pneumonia with hypoxia: Patient on heparin drip for high D-dimer. Could not do CTPA but venous duplex negative for acute DVT bilateral lower extremities. Inflammatory markers are elevated. On dexamethasone. Not cleared for remdesivir because of acute kidney injury. 04/12:-Heparin drip changed to Lovenox because of fluctuation of APTT and ease of administration. VQ scan could not be done because of Covid isolation. Creatinine improving but still 1.32, estimated creatinine clearance 46 her appointment. Patient running low blood pressure, H&H ordered. Today CBC shows hemoglobin 11.4 similar to yesterday #2. Acute kidney injury, probably prerenal from GI loss: Improvement in BUN/creatinine with IV fluid rehydration. 04/12 as mentioned above. Creatinine improving. IV fluid discontinued #3. Questionable Acute urinary tract infection: UA positive of nitrite and LE. Pyuria present. 04/12: Was empirically urine culture negative. Ceftriaxone discontinued #4. Hypertension: Given acute kidney injury will hold patient Teksrinivasanurna 04/12: Patient running low blood pressure but he still MAP more than 65. Bystolic discontinued. #5. Hypothyroidism: Continue home synthroid regimen. #6. Morbid Obesity: Weight loss and lifestyle changes encouraged, nutrition consulted. #7. DVT prophylaxis: SCDs, as mentioned above #8. CODE status: Full code. Charges/Coding Visit Charges Inpatient E&M: 79904 Subs Hosp L2
[2021-04-12 12:51] LABS: Partial Thromboplast Time 48.9 Seconds (24.1-36.2)
[2021-04-12 16:44] LABS: Hematocrit 34.7 % (37-47); Hemoglobin 11.8 g/dL (12.0-15.0)
[2021-04-12] MEDS: guaiFENesin/D-Methorphan TAB.SR.12H 1 TABLET PO ×2 (17:27→23:06)
[2021-04-12] MEDS: Enoxaparin 60 MG/0.6 ML Syringe SC (23:06)
[2021-04-13] VITALS (8 sets, daily range): BP systolic 96–133; BP diastolic 60–75; PULSE 60–78; RESP 16–18; TEMP 36.2–37.2; O2SAT 88–95
[2021-04-13 05:57] LABS: Absolute Lymphocyte Count 0.81 X10^3/uL (0.83-4.51); Absolute Neutrophil Count 3.9 X10^3/uL (2.0-7.7); Basophil# 0.01 X10^3/uL; Basophil% 0.2 % (0-1); Hemoglobin 11.3 g/dL (12.0-15.0); Lymphocyte # 0.81 X10^3/ul (0.83-4.51); Lymphocyte % 15.5 % (19-41); Mean Corp Hgb Conc 34.2 g/dL (32-36); Mean Corpuscular Volume 93.5 fL (81-99); Mean Platelet Vol. 9.7 fl (6.2-12.0); Monocyte# 0.49 X10^3/uL; Monocyte% 9.4 % (0-10); NRBC Flagged by Analyzer 0 % (0-5); Neutrophil # 3.91 X10^3/uL (2.7-7.7); Neutrophil % 74.5 % (47-70); Platelet Count 215 K/mm3 (150-450); RBC Distribution Width CV 13.1 % (11.6-14.6); RBC Distribution Width SD 44.9 fl (35.1-43.9); Red Blood Count 3.53 M/mm3 (4.2-5.4); White Blood Count 5.2 K/mm3 (4.4-11.0)
[2021-04-13 06:39] LABS: ALB/GLOB Ratio 0.7 RATIO (0.9-2.4); AST(SGOT) 46 U/L (15-37); Alanine Aminotransfer ALT/SGPT 43 U/L (13-56); Albumin, Serum 2.7 g/dL (3.2-5.0); Alkaline Phosphatase 75 U/L (45-117); Anion Gap 8 (5-15); BUN 34 mg/dL (7-18); BUN/Creat Ratio 30.6 RATIO (10-20); Calcium,Total 8.5 mg/dL (8.5-10.1); Chloride 107 mmol/L (98-107); Creatinine, Serum 1.11 mg/dL (0.55-1.02); EST Glomerular Filtration Rate 53 mL/min (>60); Est Glom Filt Rate - Afr Amer 65 mL/min (>60); Estimated Creatinine Clearance 55.05 ml/min; Globulin 4.1 g/dL (2.2-4.2); Glucose 115 mg/dL (74-106); Protein, Total 6.8 g/dL (6.4-8.2); Sodium Level 141 mmol/L (136-145)
--- NOTE | 2021-04-13 09:54 | CT_ITS ---
STUDY: CTA CHEST REASON FOR EXAM: Female, 60 years old. COVID PNEUMONIA R/O PE RADIATION DOSAGE (If Supplied By Facility): CTDIvol = ( 19.7 ) mGy, DLP = ( 750.02 ) mGycm TECHNIQUE: The examination was performed with the intravenous administration of IV 100mL Isovue-370. Post-processing of the angiographic images was performed, with multiplanar reformation and 3D reconstruction. Individualized dose optimization techniques were used for this CT. COMPARISON: Chest x-ray 04/10/2021 FINDINGS: Normal enhancement of the main pulmonary artery and right and left pulmonary arteries. Normal enhancement of the bilateral peripheral pulmonary arteries. There is no demonstrated pulmonary embolism. Normal thoracic aorta and visualized great vessels. There is no demonstrated aortic dissection. Normal heart and pericardium. Normal mediastinum. Normal hilar regions. Normal visualized trachea and bronchi. The lungs are well expanded. Bilateral patchy groundglass opacities consistent with moderate subsegmental atelectasis or pneumonitis. Normal pleura. Normal chest wall structures. Normal osseous structures. Normal visualized upper abdomen. CT/CTA Chest W/WO Contrast IMPRESSION: 1. No CT evidence of pulmonary embolism. 2. Moderate bilateral subsegmental atelectasis or pneumonitis. Commonly reported imaging features of Covid 19 pneumonia are present. Other processes such as influenza pneumonia and organizing pneumonia as can be seen in drug toxicity and connective tissue disease can cause a similar imaging pattern. Electronically Signed: Janes Hill MD at 11:26 EST Tel , Service support ,
[2021-04-13] MEDS: dexAMETHasone 4 MG Tablet 6 MG PO (10:37)
[2021-04-13] MEDS: Levothyroxine 75 MCG Tablet PO (10:37)
[2021-04-13] MEDS: guaiFENesin/D-Methorphan TAB.SR.12H 1 TABLET PO (10:37)
[2021-04-13] MEDS: Allopurinol 100 MG Tablet 200 MG PO (10:37)
[2021-04-13] MEDS: 0.9% Normal Saline 1,000 ML 50 ML IV (10:40)
[2021-04-13] MEDS: Enoxaparin 40 MG/0.4 ML Syringe SC ×2 (10:44→20:58)
--- NOTE | 2021-04-13 14:54 | PN.HOSP_ITS ---
Objective Data Objective Data Vital Signs: Vital Signs Temp Pulse Resp BP Pulse Ox 97.6 F L 72 16 104/60 92 04/13/21 09:00 04/13/21 09:00 04/13/21 09:00 04/13/21 09:00 04/13/21 09:05 Oxygen Flow Rate (L/min) [At 3 REST with Oxygen] Oxygen Flow Rate (L/min) [ 6 AMBULATING with Oxygen #3] Oxygen Flow Rate (L/min) [ 88 AMBULATING with Oxygen #2] Oxygen Flow Rate (L/min) [ 7 AMBULATING with Oxygen #1] Oxygen Flow Rate (L/min) 3 Oxygen Delivery Method Nasal Cannula Weight: 283 lb 11.759 oz Body Mass Index (BMI) 43.0 Intake & Output: Intake and Output for Last 24 Hours 04/11/21 04/12/21 04/13/21 23:59 23:59 23:59 Intake Total 3000.00 / 3240.00 1580.78 / 1580.78 Output Total 300 / 300 Balance 2700.00 / 2940.00 1580.78 / 1580.78 Lab / Micro Data Result Diagrams: 04/13/21 04:38 04/13/21 04:38 Labs: Laboratory Results - last 24 hr 04/12/21 16:34: Hgb 11.8 L, Hct 34.7 L 04/13/21 04:38: WBC 5.2, RBC 3.53 L, Hgb 11.3 L, Hct 33.0 L, MCV 93.5, MCH 32.0, MCHC 34.2, RDW Std Deviation 44.9 H, RDW Coeff of Alverto 13.1, Plt Count 215, MPV 9.7, Immature Gran % (Auto) 0.400, Neut % (Auto) 74.5 H, Lymph % (Auto) 15.5 L, [place] % (Auto) 9.4, Eos % (Auto) 0.0, Baso % (Auto) 0.2, Absolute Neuts (auto) 3.9, Absolute Lymphs (auto) 0.81 L, Nucleated RBC % 0 04/13/21 04:38: Sodium 141, Potassium 4.0, Chloride 107, Carbon Dioxide 26.0, Anion Gap 8, BUN 34 H, Creatinine 1.11 H, Estim Creat Clear Calc 55.05, Est GFR (MDRD) Af Amer 65, Est GFR (MDRD) Non-Af 53 L, BUN/Creatinine Ratio 30.6 H, Glucose 115 H, Calcium 8.5, Total Bilirubin 0.40, AST 46 H, ALT 43, Alkaline Phosphatase 75, Total Protein 6.8, Albumin 2.7 L, Globulin 4.1, Albumin/Globulin Ratio 0.7 L Micro: Microbiology 04/10/21 20:00 Urine, Clean Catch Urine Culture - Preliminary Presumptive E. coli 04/11/21 11:30 Sputum, Expectorated/Coughed Gram Stain - Final 04/11/21 11:30 Sputum, Expectorated/Coughed Respiratory Culture - Final 04/10/21 20:00 Urine, Clean Catch Streptococcus pneumoniae Antigen (M - Final 04/10/21 20:00 Urine, Clean Catch Legionella Antigen - Final 04/10/21 12:15 Nasal Secretion SARS-CoV-2 Antigen (Rapid) - Final SARS-CoV-2 (COVID 19) Radiography Diagnostic Testing: Radiology Impression Chest CTA 04/13/21 09:54 IMPRESSION: 1. No CT evidence of pulmonary embolism. 2. Moderate bilateral subsegmental atelectasis or pneumonitis. Commonly reported imaging features of Covid 19 pneumonia are present. Other processes such as influenza pneumonia and organizing pneumonia as can be seen in drug toxicity and connective tissue disease can cause a similar imaging pattern. Electronically Signed: Janes Hill MD at 11:26 EST Tel , Service support , Physical Exam Narrative Seen and examined. No fever. Patient hypoxia 93% at 3 L on rest and 88% on 7 L on ambulation. General: Alert, Oriented x3, Cooperative HEENT: Hard of hearing. Atraumatic, PERRLA, EOMI, Normocephalic Oral: No Gingival or Mucosal Lesions/ Ulcerations Neck: Supple, No JVD, Negative Carotid Bruits Lungs: Air entry diminished in bilateral lung bases. No tachypnea. Cardiovascular: Regular rate, Regular Rhythm, Normal S1, Normal S2, No murmurs Abdomen: Bowel Sounds Present, Soft, Non Tender, Non-Distended : No dysuria. No renal angle tenderness. No suprapubic tenderness. Extremities: No edema, Capillary Refill Less than 3 Seconds Skin: No rashes, No breakdown Musculoskeletal: No Tenderness to Palpation of Joints or Extremities. No muscle tenderness. Neurological: Cranial nerves II-XII grossly intact, DTR 2+/4 and Symmetrical, Neuro grossly intact Psych/Mental Status: Normal Affect, Appropriate. Assessment & Plan Assessment/Plan (1) Pneumonia due to COVID-19 virus: (2) Hypoxia: PLAN: The patient is a 60 y/o F was admitted with fever, body chills, dyspnea cough and symptomatology of COVID-19 since 04/03. #1. Acute bilateral COVID-19 pneumonia with hypoxia: Patient on heparin drip for high D-dimer. Could not do CTPA but venous duplex negative for acute DVT bilateral lower extremities. Inflammatory markers are elevated. On dexamethasone. Not cleared for remdesivir because of acute kidney injury. 04/12:-Heparin drip changed to Lovenox because of fluctuation of APTT and ease of administration. VQ scan could not be done because of Covid isolation. Creatinine improving but still 1.32, estimated creatinine clearance 46 her appointment. Patient running low blood pressure, H&H ordered. Today CBC shows hemoglobin 11.4 similar to yesterday 04/13: CT abdomen was done as creatinine clearance improved. Does not show PE but suggestive of bilateral COVID-19 pneumonitis, bilateral bases atelectasis. Lovenox decreased to 40 mg subcu twice daily DVT prophylaxis dose as per BMI. #2. Acute kidney injury, probably prerenal from GI loss: Improvement in BUN/creatinine with IV fluid rehydration. 04/12 as mentioned above. Creatinine improving. IV fluid discontinued 04/13: Creatinine improved to 1.1. Estimated creatinine clearance 55 mils per minute. Normal saline 50 mL, 5 hours before [address] angiogram to prevent BRIANA. Monitor kidney function tomorrow. #3. Questionable Acute urinary tract infection: UA positive of nitrite and LE. Pyuria present. 04/12: Was empirically urine culture negative. Ceftriaxone discontinued 04/13: Urine culture shows preliminary E. coli more than 100,000. Ceftriaxone continued #4. Hypertension: Given acute kidney injury will hold patient Tekturna 04/12: Patient running low blood pressure but he still MAP more than 65. Bystolic discontinued. #5. Hypothyroidism: Continue home synthroid regimen. #6. Morbid Obesity: Weight loss and lifestyle changes encouraged, nutrition consulted. #7. DVT prophylaxis: SCDs, as mentioned above #8. CODE status: Full code. Charges/Coding Visit Charges Inpatient E&M: 87763 Subs Hosp L2
[2021-04-13] MEDS: Ceftriaxone 1 GM/50 ML BAG IV (15:53)
[2021-04-14] VITALS (8 sets, daily range): BP systolic 110–122; BP diastolic 55–93; PULSE 58–88; RESP 16–20; TEMP 36.3–36.4; O2SAT 88–96
[2021-04-14 06:56] LABS: Absolute Lymphocyte Count 1.09 X10^3/uL (0.83-4.51); Absolute Neutrophil Count 3.3 X10^3/uL (2.0-7.7); Hematocrit 30.8 % (37-47); Hemoglobin 10.5 g/dL (12.0-15.0); Lymphocyte # 1.09 X10^3/ul (0.83-4.51); Lymphocyte % 22.2 % (19-41); Mean Corp Hgb Conc 34.1 g/dL (32-36); Mean Corpuscular Hgb 31.6 pg (27.0-32.0); Mean Corpuscular Volume 92.8 fL (81-99); Mean Platelet Vol. 9.4 fl (6.2-12.0); Monocyte# 0.47 X10^3/uL; Monocyte% 9.6 % (0-10); NRBC Flagged by Analyzer 0 % (0-5); Neutrophil % 67.2 % (47-70); Platelet Count 216 K/mm3 (150-450); RBC Distribution Width CV 12.8 % (11.6-14.6); RBC Distribution Width SD 43.8 fl (35.1-43.9); Red Blood Count 3.32 M/mm3 (4.2-5.4); White Blood Count 4.9 K/mm3 (4.4-11.0)
[2021-04-14 07:20] LABS: ALB/GLOB Ratio 0.6 RATIO (0.9-2.4); AST(SGOT) 39 U/L (15-37); Alanine Aminotransfer ALT/SGPT 41 U/L (13-56); Albumin, Serum 2.4 g/dL (3.2-5.0); Alkaline Phosphatase 66 U/L (45-117); Anion Gap 6 (5-15); BUN 24 mg/dL (7-18); BUN/Creat Ratio 26.5 RATIO (10-20); Calcium,Total 8.3 mg/dL (8.5-10.1); Chloride 110 mmol/L (98-107); Creatinine, Serum 0.91 mg/dL (0.55-1.02); EST Glomerular Filtration Rate 67 mL/min (>60); Est Glom Filt Rate - Afr Amer 82 mL/min (>60); Estimated Creatinine Clearance 67.15 ml/min; Globulin 3.7 g/dL (2.2-4.2); Glucose 96 mg/dL (74-106); Potassium 3.8 mmol/L (3.5-5.1); Protein, Total 6.1 g/dL (6.4-8.2); Sodium Level 141 mmol/L (136-145)
[2021-04-14] MEDS: dexAMETHasone 4 MG Tablet 6 MG PO (09:18)
[2021-04-14] MEDS: Allopurinol 100 MG Tablet 200 MG PO (09:19)
[2021-04-14] MEDS: Enoxaparin 40 MG/0.4 ML Syringe SC ×2 (09:19→22:06)
[2021-04-14] MEDS: Levothyroxine 75 MCG Tablet PO (09:20)
[2021-04-14] MEDS: Ceftriaxone 1 GM/50 ML BAG IV (09:25)
--- NOTE | 2021-04-14 10:28 | DS.PCM_ITS ---
Providers Date of Admission: 04/10/21 Primary Care Physician: Dr. Eliecer George MD Reason For Visit: COVID PNA / HYPOXIA / VIDHI Diagnosis Discharge Diagnosis (1) Pneumonia due to COVID-19 virus: Status: Acute Code(s): U07.1 - COVID-19; J12.82 - Pneumonia due to coronavirus disease 2019 (2) Hypoxia: Status: Acute Code(s): R09.02 - Hypoxemia Medications at Discharge Home Medications aliskiren-hydrochlorothiazide [Tekturna Hct 300-25 MG Tablet] 1 tab PO DAILY 07/06/16 nebivolol [Bystolic] 5 mg PO DAILY 07/06/16 allopurinol 200 mg PO DAILY 04/10/21 levothyroxine [Synthroid] 75 mcg PO DAILY 04/10/21 Weight / BMI Weight Weight: 284 lb 9.868 oz Body Mass Index (BMI) 43.0 ABG / Lab / Microbiology Data Result Diagrams: 04/14/21 06:25 04/14/21 06:25 Laboratory: Laboratory Results - last 24 hr 04/14/21 06:25: WBC 4.9, RBC 3.32 L, Hgb 10.5 L, Hct 30.8 L, MCV 92.8, MCH 31.6, MCHC 34.1, RDW Std Deviation 43.8, RDW Coeff of Alverto 12.8, Plt Count 216, MPV 9.4, Immature Gran % (Auto) 1.000 H, Neut % (Auto) 67.2, Lymph % (Auto) 22.2, [place] % (Auto) 9.6, Eos % (Auto) 0.0, Baso % (Auto) 0.0, Absolute Neuts (auto) 3.3, Absolute Lymphs (auto) 1.09, Nucleated RBC % 0 04/14/21 06:25: Sodium 141, Potassium 3.8, Chloride 110 H, Carbon Dioxide 25.0, Anion Gap 6, BUN 24 H, Creatinine 0.91, Estim Creat Clear Calc 67.15, Est GFR (MDRD) Af Amer 82, Est GFR (MDRD) Non-Af 67, BUN/Creatinine Ratio 26.5 H, Glucose 96, Calcium 8.3 L, Total Bilirubin 0.40, AST 39 H, ALT 41, Alkaline Phosphatase 66, Total Protein 6.1 L, Albumin 2.4 L, Globulin 3.7, Albumin/Globulin Ratio 0.6 L Microbiology: Microbiology 04/10/21 20:00 Urine, Clean Catch Urine Culture - Final Presumptive E. coli 04/11/21 11:30 Sputum, Expectorated/Coughed Gram Stain - Final 04/11/21 11:30 Sputum, Expectorated/Coughed Respiratory Culture - Final 04/10/21 20:00 Urine, Clean Catch Streptococcus pneumoniae Antigen (M - Final 04/10/21 20:00 Urine, Clean Catch Legionella Antigen - Final 04/10/21 12:15 Nasal Secretion SARS-CoV-2 Antigen (Rapid) - Final SARS-CoV-2 (COVID 19) Radiography Diagnostic Testing: Radiology Impression Chest CTA 04/13/21 09:54 IMPRESSION: 1. No CT evidence of pulmonary embolism. 2. Moderate bilateral subsegmental atelectasis or pneumonitis. Commonly reported imaging features of Covid 19 pneumonia are present. Other processes such as influenza pneumonia and organizing pneumonia as can be seen in drug toxicity and connective tissue disease can cause a similar imaging pattern. Electronically Signed: Janes Hill MD at 11:26 EST Tel , Service support , Discharge Plan Admission Admit Date/Time: 04/10/21 15:07 Attending Provider: Joaquín Valdes Primary Care Provider: Eliecer George Discharge Orders/Prescriptions Prescriptions: No Action nebivolol [Bystolic] 5 MG tablet 5 mg PO DAILY RF: 0 Tekturna HCT 1 TAB tablet 1 tab PO DAILY RF: 0 allopurinol 100 mg tablet 200 mg PO DAILY RF: 0 levothyroxine [Synthroid] 75 mcg tablet 75 mcg PO DAILY RF: 0
--- NOTE | 2021-04-14 10:28 | PCM.DC ---
Discharge Instructions Follow Up Care Test Results: Test results from this visit will be discussed in further detail at your follow-up appointment, if applicable. Discharge Plan Admission Admit Date/Time: 04/10/21 15:07 Attending Provider: Joaquín Valdes Primary Care Provider: Eliecer George Discharge Orders/Prescriptions Prescriptions: No Action nebivolol [Bystolic] 5 MG tablet 5 mg PO DAILY RF: 0 Tekturna HCT 1 TAB tablet 1 tab PO DAILY RF: 0 allopurinol 100 mg tablet 200 mg PO DAILY RF: 0 levothyroxine [Synthroid] 75 mcg tablet 75 mcg PO DAILY RF: 0
[2021-04-14] MEDS: 0.9% Saline Lock 10 ML Syringe IV (10:42)
--- NOTE | 2021-04-14 13:01 | PN.HOSP_ITS ---
Subjective Subjective Patient wants to the patient wants to go home but required 6 L of oxygen on ambulation and pulse ox 89%. CT chest finding discussed with the patient. Objective Data Objective Data Vital Signs: Vital Signs Temp Pulse Resp BP Pulse Ox 97.6 F L 88 18 115/78 90 04/14/21 09:08 04/14/21 09:08 04/14/21 09:08 04/14/21 09:08 04/14/21 11:56 Oxygen Flow Rate (L/min) [At 3 REST with Oxygen] Oxygen Flow Rate (L/min) [ 6 AMBULATING with Oxygen #3] Oxygen Flow Rate (L/min) [ 4 AMBULATING with Oxygen #2] Oxygen Flow Rate (L/min) [ 2 AMBULATING with Oxygen #1] Oxygen Flow Rate (L/min) [At 0 REST on Room Air] Oxygen Flow Rate (L/min) 3 Oxygen Delivery Method Nasal Cannula Weight: 284 lb 9.868 oz Body Mass Index (BMI) 43.0 Intake & Output: Intake and Output for Last 24 Hours 04/12/21 04/13/21 04/14/21 23:59 23:59 23:59 Intake Total 1580.78 / 1580.78 350 / 350 1800 / 1800 Output Total 300 / 300 Balance 1580.78 / 1580.78 350 / 350 1500 / 1500 Lab / Micro Data Result Diagrams: 04/14/21 06:25 04/14/21 06:25 Labs: Laboratory Results - last 24 hr 04/14/21 06:25: WBC 4.9, RBC 3.32 L, Hgb 10.5 L, Hct 30.8 L, MCV 92.8, MCH 31.6, MCHC 34.1, RDW Std Deviation 43.8, RDW Coeff of Alverto 12.8, Plt Count 216, MPV 9.4, Immature Gran % (Auto) 1.000 H, Neut % (Auto) 67.2, Lymph % (Auto) 22.2, [place] % (Auto) 9.6, Eos % (Auto) 0.0, Baso % (Auto) 0.0, Absolute Neuts (auto) 3.3, Absolute Lymphs (auto) 1.09, Nucleated RBC % 0 04/14/21 06:25: Sodium 141, Potassium 3.8, Chloride 110 H, Carbon Dioxide 25.0, Anion Gap 6, BUN 24 H, Creatinine 0.91, Estim Creat Clear Calc 67.15, Est GFR (MDRD) Af Amer 82, Est GFR (MDRD) Non-Af 67, BUN/Creatinine Ratio 26.5 H, Glucose 96, Calcium 8.3 L, Total Bilirubin 0.40, AST 39 H, ALT 41, Alkaline Phosphatase 66, Total Protein 6.1 L, Albumin 2.4 L, Globulin 3.7, Albumin/Globulin Ratio 0.6 L Micro: Microbiology 04/10/21 20:00 Urine, Clean Catch Urine Culture - Final Presumptive E. coli 04/11/21 11:30 Sputum, Expectorated/Coughed Gram Stain - Final 04/11/21 11:30 Sputum, Expectorated/Coughed Respiratory Culture - Final 04/10/21 20:00 Urine, Clean Catch Streptococcus pneumoniae Antigen (M - Final 04/10/21 20:00 Urine, Clean Catch Legionella Antigen - Final 04/10/21 12:15 Nasal Secretion SARS-CoV-2 Antigen (Rapid) - Final SARS-CoV-2 (COVID 19) Physical Exam Narrative General: Alert, Oriented x3, Cooperative, morbid obesity BMI 43.3 kg/m? HEENT: Hard of hearing. Atraumatic, PERRLA, EOMI, Normocephalic Oral: No Gingival or Mucosal Lesions/ Ulcerations Neck: Supple, No JVD, Negative Carotid Bruits Lungs: Air entry diminished in bilateral lung bases. No tachypnea. Hypoxia. Lungs clear Cardiovascular: Regular rate, Regular Rhythm, Normal S1, Normal S2, No murmurs Abdomen: Bowel Sounds Present, Soft, Non Tender, Non-Distended : No dysuria. No renal angle tenderness. No suprapubic tenderness. Extremities: No edema, Capillary Refill Less than 3 Seconds Skin: No rashes, No breakdown Musculoskeletal: No Tenderness to Palpation of Joints or Extremities. No muscle tenderness. Neurological: Cranial nerves II-XII grossly intact, DTR 2+/4 and Symmetrical, Neuro grossly intact Psych/Mental Status: Normal Affect, Appropriate. Assessment & Plan Assessment/Plan (1) Pneumonia due to COVID-19 virus: (2) Hypoxia: PLAN: The patient is a 60 y/o F was admitted with fever, body chills, dyspnea cough and symptomatology of COVID-19 since 04/03. #1. Acute bilateral COVID-19 pneumonia with hypoxia: Patient on heparin drip for high D-dimer. Could not do CTPA but venous duplex negative for acute DVT bilateral lower extremities. Inflammatory markers are elevated. On dexamethasone. Not cleared for remdesivir because of acute kidney injury. 04/12:-Heparin drip changed to Lovenox because of fluctuation of APTT and ease of administration. VQ scan could not be done because of Covid isolation. Creatinine improving but still 1.32, estimated creatinine clearance 46 her appointment. Patient running low blood pressure, H&H ordered. Today CBC shows hemoglobin 11.4 similar to yesterday 04/13: CT abdomen was done as creatinine clearance improved. Does not show PE but suggestive of bilateral COVID-19 pneumonitis, bilateral bases atelectasis. Lovenox decreased to 40 mg subcu twice daily DVT prophylaxis dose as per BMI. 12: Continue oxygen therapy, incentive spirometry and Pep. #2. Acute kidney injury, probably prerenal from GI loss: Improvement in BUN/creatinine with IV fluid rehydration. 04/12 as mentioned above. Creatinine improving. IV fluid discontinued 04/13: Creatinine improved to 1.1. Estimated creatinine clearance 55 mils per minute. Normal saline 50 mL, 5 hours before [address] angiogram to prevent BRIANA. Monitor kidney function tomorrow. 04/14: Creatinine further improved. No contrast-induced nephropathy. #3. Questionable Acute urinary tract infection: UA positive of nitrite and LE. Pyuria present. 04/12: Was empirically urine culture negative. Ceftriaxone discontinued 04/13: Urine culture shows preliminary E. coli more than 100,000. Ceftriaxone continued #4. Hypertension: Given acute kidney injury will hold patient Tekturna 04/12: Patient running low blood pressure but he still MAP more than 65. Bystolic discontinued. #5. Hypothyroidism: Continue home synthroid regimen. #6. Morbid Obesity: Weight loss and lifestyle changes encouraged, nutrition consulted. #7. DVT prophylaxis: SCDs, as mentioned above #8. CODE status: Full code. Charges/Coding Visit Charges Inpatient E&M: 97278 Subs Hosp L2
[2021-04-14] MEDS: Acetaminophen 325 MG Tablet 650 MG PO (21:49)
[2021-04-14] MEDS: guaiFENesin/D-Methorphan TAB.SR.12H 1 TABLET PO (21:49)
[2021-04-14] MEDS: BENZOCAINE/MENTHOL 1 LOZENGE MUCOUS MEM (23:01)
[2021-04-15] VITALS: RESP 20; O2SAT 97
[2021-04-15 04:00] VITALS: BP 101/51; PULSE 64; RESP 18; TEMP 36.9; O2SAT 97
[2021-04-15] MEDS: Acetaminophen 325 MG Tablet 650 MG PO (06:40)
[2021-04-15] MEDS: Sodium Chloride 0.65% 1 SPRAY SPRAY.BTL 2 SPRAY NASAL (06:41)
[2021-04-15 06:52] LABS: Absolute Lymphocyte Count 1.27 X10^3/uL (0.83-4.51); Absolute Neutrophil Count 3.2 X10^3/uL (2.0-7.7); Basophil# 0.01 X10^3/uL; Basophil% 0.2 % (0-1); Eosinophil# 0.01 X10^3/uL; Eosinophils% 0.2 % (0-5); Hematocrit 31.9 % (37-47); Hemoglobin 10.8 g/dL (12.0-15.0); Lymphocyte # 1.27 X10^3/ul (0.83-4.51); Mean Corp Hgb Conc 33.9 g/dL (32-36); Mean Corpuscular Hgb 31.6 pg (27.0-32.0); Mean Corpuscular Volume 93.3 fL (81-99); Mean Platelet Vol. 9.6 fl (6.2-12.0); Monocyte# 0.47 X10^3/uL; Monocyte% 9.2 % (0-10); NRBC Flagged by Analyzer 0 % (0-5); Neutrophil # 3.24 X10^3/uL (2.7-7.7); Neutrophil % 63.6 % (47-70); Platelet Count 226 K/mm3 (150-450); RBC Distribution Width CV 12.9 % (11.6-14.6); RBC Distribution Width SD 44.2 fl (35.1-43.9); Red Blood Count 3.42 M/mm3 (4.2-5.4); White Blood Count 5.1 K/mm3 (4.4-11.0)
[2021-04-15 07:04] LABS: ALB/GLOB Ratio 0.7 RATIO (0.9-2.4); AST(SGOT) 37 U/L (15-37); Alanine Aminotransfer ALT/SGPT 41 U/L (13-56); Albumin, Serum 2.5 g/dL (3.2-5.0); Alkaline Phosphatase 62 U/L (45-117); Anion Gap 5 (5-15); BUN 23 mg/dL (7-18); BUN/Creat Ratio 25.4 RATIO (10-20); Calcium,Total 8.6 mg/dL (8.5-10.1); Chloride 109 mmol/L (98-107); Creatinine, Serum 0.91 mg/dL (0.55-1.02); EST Glomerular Filtration Rate 67 mL/min (>60); Est Glom Filt Rate - Afr Amer 82 mL/min (>60); Estimated Creatinine Clearance 67.15 ml/min; Globulin 3.8 g/dL (2.2-4.2); Glucose 92 mg/dL (74-106); Potassium 4.5 mmol/L (3.5-5.1); Protein, Total 6.3 g/dL (6.4-8.2); Sodium Level 142 mmol/L (136-145)
--- NOTE | 2021-04-15 08:02 | PCM.DC ---
Discharge Instructions Diet Discharge Diet: Low fat / Low cholesterol and 2000 mg Sodium Diet Activity Discharge Activity: Return to Normal Activity and May Not Drive Weight Bearing Status: Weight bearing as tolerated Additional Activity Instructions:: 3 weeks quarantine from the day of onset of symptoms since 04/03/2021 Dressing / Incision Call your doctor if you observe: Fever of 101 or Higher, Coldness, Increased Pain, Numbness or Tingling, Change in Color, Inability to urinate, Inability to have a bowel movement, Using more than 1 pad per hour, Shortness of breath, Dizziness, Fainting spells, Swelling in the ankles, Chest pain, Prolonged hiccupping, Increased palpitations (irregular heartbeat) and Calf discomfort Follow Up Care Test Results: Test results from this visit will be discussed in further detail at your follow-up appointment, if applicable. Discharge Plan Admission Admit Date/Time: 04/10/21 15:07 Primary Reason for Your Visit: Bilateral COVID-19 pneumonia Attending Provider: Joaquín Valdes Primary Care Provider: Eliecer George Instructions Additional Instructions / Restrictions: Advised BMP 1 week after starting Tekturna and follow with BMP Discharge Orders/Prescriptions Prescriptions: New Mucus DM 30-600 mg Tablet Extended Release 12 Hr 1 tab PO BID Qty: 14 RF: 0 Deep Sea Nasal 0.65 % Aerosol,[place] 2 spray NASAL TID PRN PRN (Reason: NASAL DRYNESS) Qty: 0 RF: 0 dexamethasone 6 mg tablet 6 mg PO DAILY Qty: 5 RF: 0 Eliquis 2.5 mg tablet 2.5 mg PO BID Qty: 30 RF: 0 Continued nebivolol [Bystolic] 5 MG tablet 5 mg PO DAILY RF: 0 allopurinol 100 mg tablet 200 mg PO DAILY RF: 0 levothyroxine [Synthroid] 75 mcg tablet 75 mcg PO DAILY RF: 0 Tekturna HCT 1 TAB tablet 1 tab PO DAILY Qty: 0 RF: 0 Referrals / Follow Up: Eliecer George MD [Primary Care Provider] - Disposition Disposition (needs filled in before D/C Order can be placed): Home, Self Care
--- NOTE | 2021-04-15 08:02 | PCM.DC.SUM ---
Providers Date of Admission: 04/10/21 Primary Care Physician: Dr. Eliecer George MD Reason For Visit: COVID PNA / HYPOXIA / VIDHI Diagnosis Discharge Diagnosis (1) Pneumonia due to COVID-19 virus: Status: Acute Code(s): U07.1 - COVID-19; J12.82 - Pneumonia due to coronavirus disease 2019 (2) Hypoxia: Status: Acute Code(s): R09.02 - Hypoxemia Medications at Discharge Home Medications nebivolol [Bystolic] 5 mg PO DAILY 07/06/16 allopurinol 200 mg PO DAILY 04/10/21 levothyroxine [Synthroid] 75 mcg PO DAILY 04/10/21 Tekturna HCT 1 tab PO DAILY #0 tab 04/15/21 apixaban [Eliquis] 2.5 mg PO BID #30 tab 04/15/21 dexamethasone 6 mg PO DAILY #5 tab 04/15/21 dextromethorphan-guaifenesin [Mucus DM] 1 tab PO BID #14 tab 04/15/21 sodium chloride [Deep Sea Nasal] 2 spray NASAL TID PRN PRN #0 ml 04/15/21 Hospital Course Summary of Care Provided Hospital Course: The patient is a 60 y/o F was admitted with fever, body chills, dyspnea cough and symptomatology of COVID-19 since 04/03. #1. Acute bilateral COVID-19 pneumonia with hypoxia: Patient on heparin drip for high D-dimer. Could not do CTPA but venous duplex negative for acute DVT bilateral lower extremities. Inflammatory markers are elevated. On dexamethasone. Not cleared for remdesivir because of acute kidney injury. Patient was initially started on heparin drip which was switched to Lovenox. Her creatinine improved and then CT angiogram chest was done CTA does not show PE but suggestive of bilateral COVID-19 pneumonitis, bilateral bases atelectasis. Lovenox decreased to 40 mg subcu twice daily DVT prophylaxis dose as per BMI. Patient discharged on Eliquis 2.5 twice daily for ease of administration Advised to continue oxygen therapy, incentive spirometry and Pep. Prescription given for dexamethasone, Mucinex DM and Eliquis. #2. Acute kidney injury, probably prerenal from GI loss: Improvement in BUN/creatinine with IV fluid rehydration. VIDHI resolved with IV fluid. No contrast-induced nephropathy. #3. E. coli acute urinary tract infection: UA positive of nitrite and LE. Pyuria present. Urine culture shows preliminary E. coli more than 100,000, ESBL sensitive. Patient had 6 days of IV ceftriaxone sensitive and does not need further antibiotic. #4. Hypertension: Given acute kidney injury will hold patient Tekturna Bystolic discontinued. Tekturna resumed as VIDHI resolved #5. Hypothyroidism: Continue home synthroid regimen. #6. Morbid Obesity: Weight loss and lifestyle changes encouraged, nutrition consulted. #7. DVT prophylaxis: SCDs, rest as mentioned above #8. CODE status: Full code. Discharge medication reconciliation done. Discharge follow-up instructions completed. Discharge process discussed with the patient and all questions were answered to patient's satisfaction. Total time spent, exact 35 minutes on discharge meds reconciliation, examination, coordination of care with nurses and ancillary staff, review of imaging and blood test and discussion with the patient on follow-up instructions Physical Exam Narrative Seen and examined on the day of discharge Afebrile. Pulse ox 91% at rest on ambient air, 90% on 6 L of oxygen. General: Alert, Oriented x3, Cooperative, morbid obesity BMI 43.3 kg/m? HEENT: Hard of hearing. Atraumatic, PERRLA, EOMI, Normocephalic Oral: No Gingival or Mucosal Lesions/ Ulcerations Neck: Supple, No JVD, Negative Carotid Bruits Lungs: Air entry diminished in bilateral lung bases. No tachypnea. Lungs clear Cardiovascular: Regular rate, Regular Rhythm, Normal S1, Normal S2, No murmurs Abdomen: Bowel Sounds Present, Soft, Non Tender, Non-Distended : No dysuria. No renal angle tenderness. No suprapubic tenderness. Extremities: No edema, Capillary Refill Less than 3 Seconds Skin: No rashes, No breakdown Musculoskeletal: No Tenderness to Palpation of Joints or Extremities. No muscle tenderness. Neurological: Cranial nerves II-XII grossly intact, DTR 2+/4 Psych/Mental Status: Normal Affect, Appropriate. Weight / BMI Weight Weight: 283 lb 11.759 oz Body Mass Index (BMI) 43.0 ABG / Lab / Microbiology Data Result Diagrams: 04/15/21 05:40 04/15/21 05:40 Laboratory: Laboratory Results - last 24 hr 04/15/21 05:40: WBC 5.1, RBC 3.42 L, Hgb 10.8 L, Hct 31.9 L, MCV 93.3, MCH 31.6, MCHC 33.9, RDW Std Deviation 44.2 H, RDW Coeff of Alverto 12.9, Plt Count 226, MPV 9.6, Immature Gran % (Auto) 1.800 H, Neut % (Auto) 63.6, Lymph % (Auto) 25.0, [place] % (Auto) 9.2, Eos % (Auto) 0.2, Baso % (Auto) 0.2, Absolute Neuts (auto) 3.2, Absolute Lymphs (auto) 1.27, Nucleated RBC % 0 04/15/21 05:40: Sodium 142, Potassium 4.5, Chloride 109 H, Carbon Dioxide 28.0, Anion Gap 5, BUN 23 H, Creatinine 0.91, Estim Creat Clear Calc 67.15, Est GFR (MDRD) Af Amer 82, Est GFR (MDRD) Non-Af 67, BUN/Creatinine Ratio 25.4 H, Glucose 92, Calcium 8.6, Total Bilirubin 0.60, AST 37, ALT 41, Alkaline Phosphatase 62, Total Protein 6.3 L, Albumin 2.5 L, Globulin 3.8, Albumin/Globulin Ratio 0.7 L Microbiology: Microbiology 04/10/21 20:00 Urine, Clean Catch Urine Culture - Final Presumptive E. coli 04/11/21 11:30 Sputum, Expectorated/Coughed Gram Stain - Final 04/11/21 11:30 Sputum, Expectorated/Coughed Respiratory Culture - Final 04/10/21 20:00 Urine, Clean Catch Streptococcus pneumoniae Antigen (M - Final 04/10/21 20:00 Urine, Clean Catch Legionella Antigen - Final 04/10/21 12:15 Nasal Secretion SARS-CoV-2 Antigen (Rapid) - Final SARS-CoV-2 (COVID 19) Meaningful Use Info Meaningful Use Diagnoses (Choose all that apply): None applicable Discharge Plan Admission Admit Date/Time: 04/10/21 15:07 Primary Reason for Your Visit: Bilateral COVID-19 pneumonia Attending Provider: Joaquín Valdes Primary Care Provider: Eliecer George Instructions Additional Instructions / Restrictions: Advised BMP 1 week after starting Tekturna and follow with BMP Discharge Orders/Prescriptions Prescriptions: New Mucus DM 30-600 mg Tablet Extended Release 12 Hr 1 tab PO BID Qty: 14 RF: 0 Deep Sea Nasal 0.65 % Aerosol,[place] 2 spray NASAL TID PRN PRN (Reason: NASAL DRYNESS) Qty: 0 RF: 0 dexamethasone 6 mg tablet 6 mg PO DAILY Qty: 5 RF: 0 Eliquis 2.5 mg tablet 2.5 mg PO BID Qty: 30 RF: 0 Continued nebivolol [Bystolic] 5 MG tablet 5 mg PO DAILY RF: 0 allopurinol 100 mg tablet 200 mg PO DAILY RF: 0 levothyroxine [Synthroid] 75 mcg tablet 75 mcg PO DAILY RF: 0 Tekturna HCT 1 TAB tablet 1 tab PO DAILY Qty: 0 RF: 0 Referrals / Follow Up: Eliecer George MD [Primary Care Provider] - Disposition Disposition (needs filled in before D/C Order can be placed): Home, Self Care Charges/Coding Visit Charges Inpatient E&M: 26736 Disch Hosp
[2021-04-15 10:00] VITALS: BP 111/63; PULSE 88; RESP 18; TEMP 36.7; O2SAT 93
[2021-04-15 10:15] VITALS: O2SAT 88; O2SAT 89; O2SAT 90; O2SAT 91; O2SAT 96
[2021-04-15] MEDS: Allopurinol 100 MG Tablet 200 MG PO (10:25)
[2021-04-15] MEDS: Levothyroxine 75 MCG Tablet PO (10:25)
[2021-04-15] MEDS: Enoxaparin 40 MG/0.4 ML Syringe SC (10:25)
[2021-04-15] MEDS: guaiFENesin/D-Methorphan TAB.SR.12H 1 TABLET PO (10:25)
[2021-04-15] MEDS: Ceftriaxone 1 GM/50 ML BAG IV (10:26)
--- NOTE | 2021-04-15 11:09 | CASEMGMT ---
Addendum entered by Shariat Dumas 04/15/21 11:55: TC to pt room, she is aware that O2 was set up through [facility] and to call them when leaving hospital or as soon as home to get concentrator set up. Addendum entered by Sharita Dumas 04/15/21 11:51: TC to [facility], spoke with Reyna, she is aware of O2 referral and portable tank will be brought to the hospital. Original Note: Pt qualifies for home O2, faxed referral to [facility] at this time.
[2021-04-15] MEDS: dexAMETHasone 4 MG Tablet 6 MG PO (11:24)
[2021-04-15 11:50] VITALS: BP 111/63; PULSE 88; RESP 18; TEMP 36.7; O2SAT 93
== END 2021-04-15 14:25 | disposition home or self-care (01) | DRG 177 ==
LOC: ED 13:13 → MS3 20:40
PROVIDERS: Admitting Provider Family Medicine; Emergency Provider Student in an Organized Health Care Education/Training Program; PCP Family Medicine; Visit Provider Internal Medicine
DX: U07.1 COVID-19 (principal); J12.82 Pneumonia due to coronavirus disease 2019; J96.01 Acute respiratory failure with hypoxia; N17.9 Acute kidney failure, unspecified; Z68.41 Body mass index [BMI] 40.0-44.9, adult; N39.0 Urinary tract infection, site not specified; E66.01 Morbid (severe) obesity due to excess calories; E03.9 Hypothyroidism, unspecified; I10 Essential (primary) hypertension; B96.20 Unspecified Escherichia coli [E. coli] as the cause of diseases classified elsewhere; Z79.899 Other long term (current) drug therapy
CPT/HCPCS: 36415; 71045; 71275; 80048; 80053; 80076; 81001; 82550; 82728; 83615; 83880; 84145; 84484; 85014; 85018; 85025; 85379; 85730; 86140; 87070; 87086; 87088; 87186; 87205; 87426; 87449; 93005; 93970; 94760; 99284; J7030; J7040; Q9967; A4216

== ENCOUNTER 2021-04-23 14:50 | Outpatient (CLI) | payer OTHER, SELFPAY ==
[2021-04-23 18:10] LABS: Anion Gap 9 (5-15); BUN 16 mg/dL (7-18); Calcium,Total 8.4 mg/dL (8.5-10.1); Chloride 107 mmol/L (98-107); Creatinine, Serum 0.76 mg/dL (0.55-1.02); EST Glomerular Filtration Rate 82 mL/min (>60); Est Glom Filt Rate - Afr Amer 100 mL/min (>60); Glucose 105 mg/dL (74-106); Sodium Level 144 mmol/L (136-145)
== END 2021-04-23 23:59 | disposition short-term general hospital (02) ==
LOC: MTLAB 14:52
PROVIDERS: PCP Family Medicine; Referring Provider Family Medicine; Visit Provider Family Medicine
DX: N28.9 Disorder of kidney and ureter, unspecified (principal)
CPT/HCPCS: 36415; 80048

== ENCOUNTER 2021-06-27 11:56 | Outpatient (CLI) | payer OTHER, SELFPAY ==
[2021-06-27 15:17] LABS: Absolute Lymphocyte Count 2.03 X10^3/uL (0.83-4.51); Absolute Neutrophil Count 3.2 X10^3/uL (2.0-7.7); Basophil# 0.05 X10^3/uL; Basophil% 0.7 % (0-1); Eosinophil# 0.99 X10^3/uL; Eosinophils% 14.5 % (0-5); Hematocrit 35.4 % (37-47); Hemoglobin 11.7 g/dL (12.0-15.0); Lymphocyte # 2.03 X10^3/ul (0.83-4.51); Lymphocyte % 29.8 % (19-41); Mean Corp Hgb Conc 33.1 g/dL (32-36); Mean Corpuscular Hgb 30.5 pg (27.0-32.0); Mean Corpuscular Volume 92.4 fL (81-99); Mean Platelet Vol. 10.5 fl (6.2-12.0); Monocyte# 0.58 X10^3/uL; Monocyte% 8.5 % (0-10); NRBC Flagged by Analyzer 0 % (0-5); Neutrophil # 3.15 X10^3/uL (2.7-7.7); Neutrophil % 46.4 % (47-70); Platelet Count 204 K/mm3 (150-450); RBC Distribution Width CV 13.4 % (11.6-14.6); RBC Distribution Width SD 45.1 fl (35.1-43.9); Red Blood Count 3.83 M/mm3 (4.2-5.4); White Blood Count 6.8 K/mm3 (4.4-11.0)
[2021-06-27 15:42] LABS: ALB/GLOB Ratio 0.9 RATIO (0.9-2.4); AST(SGOT) 24 U/L (15-37); Alanine Aminotransfer ALT/SGPT 25 U/L (13-56); Albumin, Serum 3.4 g/dL (3.2-5.0); Alkaline Phosphatase 112 U/L (45-117); Anion Gap 6 (5-15); BUN 12 mg/dL (7-18); BUN/Creat Ratio 15.9 RATIO (10-20); Calcium,Total 8.6 mg/dL (8.5-10.1); Chloride 109 mmol/L (98-107); Cholesterol 126 mg/dL (200); Creatinine, Serum 0.76 mg/dL (0.55-1.02); EST Glomerular Filtration Rate 83 mL/min (>60); Est Glom Filt Rate - Afr Amer 100 mL/min (>60); Globulin 3.6 g/dL (2.2-4.2); Glucose 102 mg/dL (74-106); High Density Lipoprotein 50 mg/dL; Potassium 3.8 mmol/L (3.5-5.1); Sodium Level 140 mmol/L (136-145); Thyroid Stim Hormone (TSH) 1.98 uIU/mL (0.358-3.74); Triglycerides 106 mg/dL; Uric Acid 4.5 mg/dL (2.6-6.0); Very Low Density Lipoprotein 21 mg/dL (5-40)
[2021-06-27 15:58] LABS: Hemoglobin A1c 5.1 % (3.8-5.6)
== END 2021-06-27 23:59 | disposition home or self-care (01) ==
LOC: MTLAB 11:57
PROVIDERS: PCP Family Medicine; Referring Provider Family Medicine; Visit Provider Family Medicine
DX: Z00.00 Encounter for general adult medical examination without abnormal findings (principal); R73.02 Impaired glucose tolerance (oral); I10 Essential (primary) hypertension; N28.9 Disorder of kidney and ureter, unspecified; M10.9 Gout, unspecified; E03.9 Hypothyroidism, unspecified
CPT/HCPCS: 36415; 80053; 80061; 83036; 84443; 84550; 85025

== ENCOUNTER 2021-07-15 12:45 | Outpatient (CLI) | payer OTHER, SELFPAY ==
--- NOTE | 2021-07-15 12:49 | BI_ITS ---
MAMMOGRAPHY - BILATERAL SCREENING REASON FOR EXAM: Female, 61 years old. Routine annual screening examination. PERTINENT HISTORY: Aunt with breast cancer. TECHNIQUE: Digital bilateral breast nya (3D mammographic acquisition) in the CC and MLO projections. 2-D mediolateral oblique (MLO) and craniocaudad (CC) views of both breasts were obtained. CAD: Full Field Digital Mammography with Computer Added Detection was performed. COMPARISON: Comparison is made with prior study dated 06/04/2020 and 03/29/2020. FINDINGS: Breast Composition: There are scattered areas of fibroglandular density. There are no dominant masses or suspicious calcifications. No other significant abnormalities are identified. There has been no significant change since the prior study. BI/SCRN MAMM (CAD)W/NYA BILAT IMPRESSION: Stable bilateral screening mammogram. Yearly follow-up mammogram recommended. (A) ASSESSMENT CATEGORY: BIRADS Category 1: Negative. A letter regarding these results will be sent to the patient by the facility within 30 days. Approximately 10% of breast cancers are not detected by mammography. A normal mammogram should not delay biopsy of a clinically suspicious abnormality. [id number] Electronically Signed: Maxi Del Toro MD at 13:39 EDT ,
== END 2021-07-15 23:59 | disposition home or self-care (01) ==
LOC: OPBI 12:46
PROVIDERS: PCP Family Medicine; Visit Provider Family Medicine
DX: Z12.31 Encounter for screening mammogram for malignant neoplasm of breast (principal)
CPT/HCPCS: 77063; 77067

== ENCOUNTER → 2022-01-30 | Outpatient (CLI) | payer OTHER, SELFPAY ==
[2022-01-30 16:00] LABS: Anion Gap 7 (5-15); BUN 18 mg/dL (7-18); BUN/Creat Ratio 22.1 RATIO (10-20); Chloride 108 mmol/L (98-107); Creatinine, Serum 0.81 mg/dL (0.55-1.02); EST Glomerular Filtration Rate 76 mL/min (>60); Est Glom Filt Rate - Afr Amer 92 mL/min (>60); Glucose 121 mg/dL (74-106); Potassium 4.1 mmol/L (3.5-5.1); Sodium Level 140 mmol/L (136-145); Thyroid Stim Hormone (TSH) 2.02 uIU/mL (0.358-3.74)
== END | disposition home or self-care (01) ==
LOC: MTLAB 11:57
PROVIDERS: PCP Family Medicine; Referring Provider Family Medicine; Visit Provider Family Medicine
DX: M10.00 Idiopathic gout, unspecified site (principal); I10 Essential (primary) hypertension; E03.9 Hypothyroidism, unspecified
CPT/HCPCS: 36415; 80048; 84443; 84550

== ENCOUNTER → 2022-02-18 | Outpatient (CLI) | payer OTHER, SELFPAY ==
[2022-02-18 18:48] LABS: Hemoglobin A1c 5.2 % (3.8-5.6)
== END | disposition home or self-care (01) ==
PROVIDERS: PCP Family Medicine
DX: R73.9 Hyperglycemia, unspecified (principal)
CPT/HCPCS: 36415; 83036

== ENCOUNTER → 2023-02-02 | Outpatient (CLI) | payer OTHER, SELFPAY ==
[2023-02-02 16:01] LABS: Anion Gap 5 (5-15); BUN 9 mg/dL (7-18); BUN/Creat Ratio 10.8 RATIO (10-20); Calcium,Total 8.9 mg/dL (8.5-10.1); Chloride 109 mmol/L (98-107); Creatinine, Serum 0.83 mg/dL (0.55-1.02); EST Glomerular Filtration Rate 74 mL/min (>60); Est Glom Filt Rate - Afr Amer 90 mL/min (>60); Glucose 97 mg/dL (74-106); Potassium 4.1 mmol/L (3.5-5.1); Sodium Level 141 mmol/L (136-145)
== END | disposition home or self-care (01) ==
PROVIDERS: PCP Family Medicine; Referring Provider Family Medicine; Visit Provider Family Medicine
DX: N28.9 Disorder of kidney and ureter, unspecified (principal); E03.9 Hypothyroidism, unspecified
CPT/HCPCS: 36415; 80048; 84443

== ENCOUNTER → 2023-08-05 | Outpatient (CLI) | payer OTHER, SELFPAY ==
[2023-08-05 17:35] LABS: Absolute Lymphocyte Count 2.53 X10^3/uL (0.83-4.51); Absolute Neutrophil Count 5.3 X10^3/uL (2.0-7.7); Basophil# 0.06 X10^3/uL; Basophil% 0.6 % (0-1); Eosinophil# 0.87 X10^3/uL; Eosinophils% 9.2 % (0-5); Hematocrit 37.6 % (37-47); Hemoglobin 12.7 g/dL (12.0-15.0); Lymphocyte # 2.53 X10^3/ul (0.83-4.51); Lymphocyte % 26.7 % (19-41); Mean Corp Hgb Conc 33.8 g/dL (32-36); Mean Corpuscular Hgb 32.2 pg (27.0-32.0); Mean Corpuscular Volume 95.4 fL (81-99); Mean Platelet Vol. 9.9 fl (6.2-12.0); Monocyte# 0.72 X10^3/uL; Monocyte% 7.6 % (0-10); NRBC Flagged by Analyzer 0 % (0-5); Neutrophil # 5.27 X10^3/uL (2.7-7.7); Neutrophil % 55.5 % (47-70); Platelet Count 254 K/mm3 (150-450); RBC Distribution Width CV 13.5 % (11.6-14.6); RBC Distribution Width SD 47.4 fl (35.1-43.9); Red Blood Count 3.94 M/mm3 (4.2-5.4); White Blood Count 9.5 K/mm3 (4.4-11.0)
[2023-08-05 18:21] LABS: ALB/GLOB Ratio 0.9 RATIO (0.9-2.4); AST(SGOT) 24 U/L (15-37); Alanine Aminotransfer ALT/SGPT 24 U/L (13-56); Albumin, Serum 3.5 g/dL (3.2-5.0); Alkaline Phosphatase 112 U/L (45-117); Anion Gap 6 (5-15); BUN 11 mg/dL (7-18); Calcium,Total 8.7 mg/dL (8.5-10.1); Chloride 109 mmol/L (98-107); Cholesterol 123 mg/dL (200); Creatinine, Serum 0.78 mg/dL (0.55-1.02); EST Glomerular Filtration Rate 79 mL/min (>60); Est Glom Filt Rate - Afr Amer 96 mL/min (>60); Globulin 3.8 g/dL (2.2-4.2); Glucose 87 mg/dL (74-106); High Density Lipoprotein 58 mg/dL; Potassium 3.8 mmol/L (3.5-5.1); Protein, Total 7.3 g/dL (6.4-8.2); Sodium Level 141 mmol/L (136-145); Thyroid Stim Hormone (TSH) 1.73 uIU/mL (0.358-3.74); Triglycerides 73 mg/dL; Very Low Density Lipoprotein 15 mg/dL (5-40)
== END | disposition home or self-care (01) ==
LOC: MTLAB 14:29
PROVIDERS: PCP Family Medicine; Referring Provider Family Medicine; Visit Provider Family Medicine
DX: E03.9 Hypothyroidism, unspecified (principal); I10 Essential (primary) hypertension; E78.00 Pure hypercholesterolemia, unspecified; Z13.0 Encounter for screening for diseases of the blood and blood-forming organs and certain disorders involving the immune mechanism
CPT/HCPCS: 36415; 80053; 80061; 84443; 85025

== ENCOUNTER → 2023-08-24 | Outpatient (CLI) | payer OTHER, SELFPAY ==
--- NOTE | 2023-08-24 12:26 | BI_ITS ---
MAMMOGRAPHY - BILATERAL SCREENING REASON FOR EXAM: Female, 63 years old. Routine annual screening examination. PERTINENT HISTORY: Aunt with breast cancer. TECHNIQUE: Digital bilateral breast nya (3D mammographic acquisition) in the CC and MLO projections. 2-D mediolateral oblique (MLO) and craniocaudad (CC) views of both breasts were obtained. CAD: Full Field Digital Mammography with Computer Added Detection was performed. COMPARISON: Comparison is made with prior study dated July 15, 2021 and March 04, 2021 FINDINGS: Breast Composition: There are scattered areas of fibroglandular density. There are no dominant masses or suspicious calcifications. Stable small benign-appearing bilateral axillary lymph nodes. No other significant abnormalities are identified. There has been no significant change since the prior study. BI/SCRN MAMM (CAD)W/NYA BILAT IMPRESSION: Stable bilateral screening mammogram. Yearly follow-up mammogram recommended. (A) ASSESSMENT CATEGORY: BIRADS Category 2: Benign. A letter regarding these results will be sent to the patient by the facility within 30 days. Approximately 10% of breast cancers are not detected by mammography. A normal mammogram should not delay biopsy of a clinically suspicious abnormality. [id number] Electronically Signed: Maxi Del Toro MD at 10:05 EDT ,
== END | disposition home or self-care (01) ==
LOC: OPBI 12:26
PROVIDERS: PCP Family Medicine; Referring Provider Family Medicine; Visit Provider Family Medicine
DX: Z12.31 Encounter for screening mammogram for malignant neoplasm of breast (principal); Z80.3 Family history of malignant neoplasm of breast
CPT/HCPCS: 77063; 77067

== ENCOUNTER → 2024-02-08 | Outpatient (CLI) | payer OTHER, SELFPAY ==
[2024-02-08 18:51] LABS: ALB/GLOB Ratio 0.9 RATIO (0.9-2.4); AST(SGOT) 35 U/L (15-37); Alanine Aminotransfer ALT/SGPT 37 U/L (13-56); Albumin, Serum 3.4 g/dL (3.2-5.0); Alkaline Phosphatase 117 U/L (45-117); Anion Gap 6 (5-15); BUN 12 mg/dL (7-18); BUN/Creat Ratio 15.5 RATIO (10-20); Calcium,Total 8.9 mg/dL (8.5-10.1); Chloride 107 mmol/L (98-107); Cholesterol 131 mg/dL (200); Creatinine, Serum 0.77 mg/dL (0.55-1.02); EST Glomerular Filtration Rate 80 mL/min (>60); Est Glom Filt Rate - Afr Amer 97 mL/min (>60); Globulin 3.9 g/dL (2.2-4.2); Glucose 86 mg/dL (74-106); High Density Lipoprotein 67 mg/dL; Potassium 3.8 mmol/L (3.5-5.1); Protein, Total 7.3 g/dL (6.4-8.2); Sodium Level 138 mmol/L (136-145); Triglycerides 107 mg/dL; Very Low Density Lipoprotein 21 mg/dL (5-40)
== END | disposition home or self-care (01) ==
LOC: MTLAB 14:23
PROVIDERS: PCP Family Medicine; Referring Provider Family Medicine; Visit Provider Family Medicine
DX: E03.9 Hypothyroidism, unspecified (principal); E78.00 Pure hypercholesterolemia, unspecified; I10 Essential (primary) hypertension
CPT/HCPCS: 36415; 80053; 80061; 84443

== ENCOUNTER → 2024-08-18 | Outpatient (CLI) | payer OTHER, SELFPAY ==
[2024-08-18 12:53] LABS: Absolute Lymphocyte Count 2.13 X10^3/uL (0.83-4.51); Absolute Neutrophil Count 4.4 X10^3/uL (2.0-7.7); Basophil# 0.06 X10^3/uL; Basophil% 0.8 % (0-1); Eosinophil# 0.61 X10^3/uL; Eosinophils% 7.9 % (0-5); Hematocrit 37.3 % (37-47); Hemoglobin 12.9 g/dL (12.0-15.0); Lymphocyte # 2.13 X10^3/ul (0.83-4.51); Lymphocyte % 27.6 % (19-41); Mean Corp Hgb Conc 34.6 g/dL (32-36); Mean Corpuscular Hgb 32.5 pg (27.0-32.0); Mean Platelet Vol. 9.8 fl (6.2-12.0); Monocyte# 0.49 X10^3/uL; Monocyte% 6.3 % (0-10); NRBC Flagged by Analyzer 0 % (0-5); Neutrophil # 4.41 X10^3/uL (2.7-7.7); Neutrophil % 57.1 % (47-70); Platelet Count 198 K/mm3 (150-450); RBC Distribution Width CV 13.1 % (11.6-14.6); RBC Distribution Width SD 44.8 fl (35.1-43.9); Red Blood Count 3.97 M/mm3 (4.2-5.4); White Blood Count 7.7 K/mm3 (4.4-11.0)
[2024-08-18 13:33] LABS: ALB/GLOB Ratio 1.2 RATIO (0.9-2.4); AST(SGOT) 31 U/L (<=31); Alanine Aminotransfer ALT/SGPT 19 U/L (<=34); Alkaline Phosphatase 112 U/L (35-104); Anion Gap 11 (5-15); BUN 11 mg/dL (4-19); BUN/Creat Ratio 13.3 RATIO (10-20); Calcium,Total 9.3 mg/dL (7.6-11.0); Carbon Dioxide 23.3 mmol/L (21.0-32.0); Chloride 105 mmol/L (98-108); Cholesterol 119 mg/dL (<=200); Creatinine, Serum 0.79 mg/dL (0.70-1.20); EST Glomerular Filtration Rate 84 (>60); Ferritin 209 ng/mL (22-378); Globulin 3.3 g/dL (2.2-4.2); Glucose 105 mg/dL (70-99); High Density Lipoprotein 47 mg/dL; Low Density Lipoprotein Calc. 51 mg/dL; Protein, Total 7.3 g/dL (5.9-8.4); Sodium Level 140 mmol/L (133-145); Total Bilirubin 1.26 mg/dL (0.00-1.30); Triglycerides 103 mg/dL; Very Low Density Lipoprotein 21 mg/dL (5-40); Vitamin B12 270 pg/mL (180-914); Vitamin D,25 Hydroxy 16.4 ng/mL (30-100); cholesterol:hdl ratio screen 2.53
[2024-08-18 13:42] LABS: Uric Acid 4.2 mg/dL (2.6-6.0)
[2024-08-18 13:55] LABS: Iron 94 ug/dL (50-170); Iron Binding Capacity,Total 265 ug/dL (250-450); Iron Binding Capacity,Unsat 171 ug/dL (228-428)
== END | disposition home or self-care (01) ==
LOC: VSLAB 10:03
PROVIDERS: PCP Nurse Practitioner Family; Visit Provider Nurse Practitioner Family
DX: E03.9 Hypothyroidism, unspecified (principal); R53.83 Other fatigue; E78.5 Hyperlipidemia, unspecified; M10.9 Gout, unspecified
CPT/HCPCS: 36415; 80053; 80061; 82306; 82607; 82728; 83540; 83550; 84439; 84443; 84550; 85025

== ENCOUNTER → 2024-09-30 | Outpatient (CLI) | payer OTHER, SELFPAY ==
--- NOTE | 2024-09-30 08:36 | BI_ITS ---
EXAM: SCRN MAMM (CAD)W/NYA BILAT 09/30/2024 CLINICAL HISTORY: F, Age 64 y/o , SCREENING TECHNIQUE: Bilateral screening digital breast tomosynthesis with 2D and 3D images. Computer aided detection. COMPARISON: Prior exam(s) dated 08/24/2023, 07/15/2021, 06/04/2020. FINDINGS: TISSUE DENSITY: The breast tissue is composed of scattered area of fibroglandular density. Bilateral Breast Mammographic Findings: No significant masses, calcifications or other abnormalities are identified. BI/SCRN MAMM (CAD)W/NYA BILAT IMPRESSION: Right Breast: BIRADS 1 NEGATIVE. Left Breast: BIRADS 1 NEGATIVE. OVERALL FINAL ASSESSMENT: BIRADS 1 NEGATIVE. RECOMMENDATION: Routine annual follow-up in 1 Year A letter with findings and recommendations will be mailed to the patient. Reading Location: [id number]
== END | disposition home or self-care (01) ==
LOC: OPBI 08:35
PROVIDERS: PCP Nurse Practitioner Family; Referring Provider Nurse Practitioner Family; Visit Provider Nurse Practitioner Family
DX: Z12.31 Encounter for screening mammogram for malignant neoplasm of breast (principal)
CPT/HCPCS: 77063; 77067

== ENCOUNTER → 2025-02-21 | Outpatient (CLI) | payer OTHER, SELFPAY ==
[2025-02-21 13:07] LABS: AST(SGOT) 37 U/L (<=31); Alanine Aminotransfer ALT/SGPT 28 U/L (<=34); Albumin, Serum 4.1 g/dL (3.4-4.8); Alkaline Phosphatase 105 U/L (35-104); Anion Gap 10 (5-15); BUN 14 mg/dL (4-19); BUN/Creat Ratio 15.0 RATIO (10-20); Calcium,Total 9.3 mg/dL (7.6-11.0); Carbon Dioxide 25.2 mmol/L (21.0-32.0); Chloride 104 mmol/L (98-108); Cholesterol 118 mg/dL (<=200); Globulin 3.1 g/dL (2.2-4.2); Glucose 115 mg/dL (70-99); Low Density Lipoprotein Calc. 50 mg/dL; Potassium 4.3 mmol/L (3.3-5.1); Triglycerides 82 mg/dL; Uric Acid 4.7 mg/dL (2.6-6.0); Very Low Density Lipoprotein 16 mg/dL (5-40); cholesterol:hdl ratio screen 2.29
[2025-02-21 13:36] LABS: Vitamin B12 > 4000 pg/mL (180-914); Vitamin D,25 Hydroxy 65.5 ng/mL (30-100)
== END | disposition home or self-care (01) ==
LOC: VSLAB 10:12
PROVIDERS: PCP Nurse Practitioner Family; Referring Provider Nurse Practitioner Family; Visit Provider Nurse Practitioner Family
DX: E78.5 Hyperlipidemia, unspecified (principal); E55.9 Vitamin D deficiency, unspecified; E53.9 Vitamin B deficiency, unspecified; R73.09 Other abnormal glucose; M10.9 Gout, unspecified
CPT/HCPCS: 36415; 80053; 80061; 82306; 82607; 83036; 84439; 84443; 84550

== ENCOUNTER → 2025-03-28 | Outpatient (CLI) | payer OTHER, SELFPAY ==
[2025-03-28 10:31] LABS: Mucous, Urine 0 SEEN /hpf (<or=2+); Red Blood Cells-Urine 0 SEEN /hpf (0-5)
[2025-03-28 12:04] LABS: Color, Urine Yellow (Yellow); Glucose, Dipstick Normal (Normal); Ketone-Dipstick Negative (Negative); Leukocyte Esterase-Dipstick 100 /ul (Negative); Nitrite-Dipstick Negative (Negative); Occult Blood-Urine 10 /ul (Negative); Protein-Dipstick Negative (Negative); Specific Gravity, Urine 1.010 (1.002-1.030); Urine Bilirubin Dipstick Negative (Negative)
[2025-03-28 12:15] LABS: Squamous Epithelial Cells - UA 5-10 SEEN /hpf (5-10)
[2025-03-28 12:53] LABS: Vitamin B12 509 pg/mL (180-914)
== END | disposition home or self-care (01) ==
LOC: VSLAB 10:23
PROVIDERS: PCP Nurse Practitioner Family; Visit Provider Nurse Practitioner Family
DX: E53.9 Vitamin B deficiency, unspecified (principal); N39.0 Urinary tract infection, site not specified
CPT/HCPCS: 36415; 81001; 82607; 87086; 87088